=== PATIENT | male | born 1970 | race Caucasian/White ===

== ENCOUNTER 2017-08-08 12:12 | Emergency (ER) | payer BC, OTHER ==
[~2017-08-08] VITALS: Ht 170.2 cm; Wt 67.8 kg
[~2017-08-08 12:12] MED LIST: CREON PO; PRLSR20 PO
[2017-08-08 12:14] VITALS: Ht 170.2 cm; Wt 67.8 kg
[2017-08-08] MEDS ORDERED: TRAZ50TA35 PO (12:43)
[2017-08-08] MEDS ORDERED: FLUO10CA48 PO (12:43)
--- NOTE | 2017-08-08 13:14 | DIAGNOSTIC IMAGING REPORT ---
R FOOT MIN 3 VIEWS ROUTINE HISTORY: 47 years-old Male R foot pain acute right foot pain COMPARISON: Right foot radiographs 02/27/2015 TECHNIQUE: 3 views of the right foot FINDINGS: Unchanged 1.1 cm corticated bone fragment adjacent to the distal fibula suggesting remote fracture fragment. There is an acute nondisplaced intra-articular fracture involving the lateral base of the first distal phalanx with a suspected additional acute nondisplaced intra-articular fracture involving the lateral base of the second distal phalanx and first distal phalangeal tuft. No additional acute fracture or dislocation. Mild soft tissue swelling of the first and second toes. Moderate plantar and small Achilles opacified about the calcaneus. Mild dorsal forefoot soft tissue swelling. IMPRESSION: 1. Acute nondisplaced fractures involve the lateral bases of the first and second distal phalanges with a probable additional nondisplaced fracture involving the first distal phalange tuft. 2. Mild forefoot soft tissue swelling. 3. Degenerative changes as above. The above report was generated using voice recognition software. It may contain grammatical, syntax or spelling errors. Electronically signed by: Saud Agosto M.D. 08/08/2017 1:13 PM Dictated Date/Time: 08/08/2017 1:10 PM
[2017-08-08 13:52] VITALS: BP 155/83; PULSE 68; TEMP 36.5; O2SAT 96
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
== END 2017-08-08 13:53 | disposition home or self-care (01) ==
LOC: C.EDB 12:13 → C.EDD 13:53
DX: S92.424A Nondisplaced fracture of distal phalanx of right great toe, initial encounter for closed fracture (principal); S90.31XA Contusion of right foot, initial encounter; W28.XXXA Contact with powered lawn mower, initial encounter; F17.210 Nicotine dependence, cigarettes, uncomplicated

== ENCOUNTER 2021-11-05 06:07 | Inpatient (IN) ==
[2021-11-05] MEDS ORDERED: MULTI-VITAMIN INFUSION 10 ML, THIAMINE HCL 100 MG, FOLIC ACID 1 MG in SODIUM CHLORIDE 0... IV ONE (06:32)
[2021-11-05] MEDS ORDERED: MoRPHine SULFATE 10 MG/ML CARP/VIAL IV STA (06:32)
--- NOTE | 2021-11-05 06:36 | Emergency Department Note ---
Impression & Plan Pain and swelling of right lower leg, Hypomagnesemia, Generalized weakness, Ataxia, Gout ED Provider Note Name: HARDY FLORES Age: 51 Sex: M Arrives Via: Walk-In Informant: Patient, ED Provider: Andrea Schwartz MD Chief Complaint: Right leg pain Impression: As per impressions above Medical Decision Makin-year-old alcoholic male who arrives for evaluation of acute worsening right leg pain. By exam he has erythema and warmth and pain in the right foot though also a moderate effusion of the right knee. He does not have a typical cellulitic look and given his gout history I would say the foot is more clearly gout related though cannot rule out infection. I did get ESR CRP which were elevated though could be either in a white blood cell count is mildly elevated. The knee is swollen with effusion though no significant warmth and with passive range of motion does not seem to bother him too much unless he go beyond 30 to 45 degrees and palpation does not seem to cause too much discomfort. Again this would lean more towards gout and with an elevated uric acid and no current fever. Patient's labs do reveal low magnesium which is likely due to his alcoholism. He was given a liter of banana bag. His oxygen dropped from low 90s to the 80s with a small dose of morphine and given so was placed on nasal cannula O2. Chest x-ray reveals some emphysema consistent with his smoking history. COVID is negative. I think in the setting of his generalized weakness is ambulatory dysfunction his rapid drop in O2 sats and his hypomagnesemia I think hospitalization is reasonable. In the setting I think monitoring the leg rather than immediately starting antibiotics is reasonable. I did obtain blood cultures and a lactic acid with the initial work-up which the lactic acid is normal. I discussed the case with hospitalist who will evaluate him further Prior Medical Record and Triage/Nursing Notes reviewed by Me Additional history obtained from chart & Differentials:DVT, musculoskeletal, infection, joint effusion, trauma, lymphedema, idiopathic, CHF, as well as other pathologies. Vital Signs: reviewed and remarkable for no significant abnormalities Interventions: Banana bag 1 L IV, IV magnesium 1 g Labs:Reviewed and remarkable for elevated ESR/CRP/uric acid. Mild white blood cell count elevation. Low magnesium Imagin view chest x-ray bilateral findings of emphysema no infiltrate. As per radiologist. As per radiologist ultrasound of the right leg reveals no DVT Consults:Dr. Sid Moore Hospitalist Plan: Disposition:Hospitalization. Condition: Good History of Present Illness:51-year-old gentleman arrives for evaluation of right leg pain. Patient had several days of increasing swelling of the right foot. It is now progressed to swelling of the right knee. He notes some ch ills. It is associated with redness of the foot and some redness going up his leg. He notes pain with any movement of his toes, ankle, knee. He says it hurts too much to even walk though he also notes he is feeling very unsteady. Denies any actual fall or injury. Denies any measured fevers. He has had no recent vomiting, abdominal pain, back pain beyond his chronic neck pain, headache, visual disturbance, urinary/bowel symptoms, other concerning signs or symptoms. Denies any current chest pain, shortness of breath, syncope. No medications for the pain prior to arrival. Patient with a history of alcoholism drinking roughly 6-10 hard lemonade's a night when he quit 5 days ago in prepa ration for neck surgery next week. Patient notes he has been using Valium for this. He has been having some shakes which gets better with the Valium. He is also on naltrexone for trying to quit smoking. He has been taking some uracil a uric acid decrease her. He has a history of some foot pains this assumed he had some mild gout in the past. ROS: See above HPI for pertinent positives & negatives. A total of 10 systems reviewed and were otherwise negative. Past Medical History:Alcoholism, anxiety/depression Past Surgical History:None Family History:non-contributory Social History:See Below Home Medications:fluoxetine, naltrexone, valium, urisol Allergies:Bees Vitals:Blood Pressure: 146/85, Pulse 99, RR 18, T 37.2C, O2 92% on RA Physical Exam: GENERAL: Patient is uncomfortable appearing and in moderate distress. EYES: No scleral icterus, unremarkable pupils. ENT: Mucous membranes dry, no nasal congestion. NECK: No masses appreciated, nomeningismus, trachea is midline. RESPIRATORY: No dyspnea. Clear to auscultation and equal bilaterally. No wheeze, no rhonchi. CARDIOVASCULAR: Tachy.No murmurs, rubs, gallops appreciated. GASTROINTESTINAL: Abdomen soft, non-tender, no peritonitis.Bowel sounds positive.No masses appreciated. BACK: No midline tenderness, no CVA tenderness EXTREMITIES: Warm swollen erythematous right foot with severe tenderness palpation over the foot and pain with range of motion of the toes. Erythema extending up over ankle joint which is moderately swollen as well. He has a moderate effusion of the right knee as well with quite severe pain on range of motion beyond 30 degrees though no significant pain on palpation of knee joint at rest. Distal pulses sensation intact. Otherwise motion all extremities, no cyanosis, no edema. NEUROLOGIC: Mildly tremulous, Alert and oriented, no acute motor or sensory deficits, no focal weakness, cranial nerves grossly intact. SKIN: No rash, no jaundice, no diaphoresis. PSYCH: Appropriate GCS: 15 ED Course: Times/Reassessments: Patient feels much better after some fluids and morphine though his oxygen dropped pretty quickly and thus is requiring nasal cannula O2 Andrea Schwartz MD Past Med/Surg History Medical History Alcohol abuse Hypomagnesemia Leaky heart valve Neck pain, chronic Non-productive cough Pain and swelling of right lower leg Right leg pain Tobacco use Surgical History No pertinent past surgical history Social History Smoking Status: Current every day smoker Tobacco Type: Cigarettes Hx Alcohol Use: Yes Hx Substance Use: No Preferred Language: Greenlandic Current Living Situation: Spouse Feels Safe at Home: Yes Allergies Allergies Allergy/AdvReac Type Severity Reaction Status Date / Time bee venom protein (honey bee) Allergy Severe SHORTNESS Verified 08/15/20 22:17 OF BREATH, SWELLING Home Meds Home Medications Medication Instructions Recorded Confirmed fluoxetine 10 mg capsule 10 mg PO DAILY 08/15/20 11/05/21 trazodone 100 mg tablet 100 mg PO HS 08/15/20 11/05/21 Results & Data (ED) Vital Signs Vital Signs - 24 hr 11/05/21 06:11 11/05/21 07:02 11/05/21 07:15 Temperature 37.2 C Temperature Source Temporal Artery Scan Pulse Rate 99 H Pulse Rate [Left Apical] 87 Pulse Rhythm [Left Apical] Regular Pulse Strength [Left Apical] Normal Respiratory Rate 18 16 Respiratory Effort / Characteristics Non-Labored Spontaneous Non-Labored Spontaneous Respiratory Depth Normal Normal Blood Pressure 146/85 H Blood Pressure [Right Arm] 145/87 H Blood Pressure Mean 105 Blood Pressure Mean [Right Arm] 106 Blood Pressure Position Sitting Pulse Oximetry 92 92 88 L Oxygen Delivery Method Room Air Room Air Room Air Oxygen Flow Rate Sepsis Recent Fever Within 48 Hours No Sepsis New/Unexplained Change in Mental Status No Sepsis Action Taken by Nursing No Action Required 11/05/21 08:02 Temperature Temperature Source Pulse Rate Pulse Rate [Left Apical] Pulse Rhythm [Left Apical] Pulse Strength [Left Apical] Respiratory Rate Respiratory Effort / Characteristics Respiratory Depth Blood Pressure Blood Pressure [Right Arm] Blood Pressure Mean Blood Pressure Mean [Right Arm] Blood Pressure Position Pulse Oximetry 97 Oxygen Delivery Method Nasal Cannula Oxygen Flow Rate 2 Sepsis Recent Fever Within 48 Hours Sepsis New/Unexplained Change in Mental Status Sepsis Action Taken by Nursing Laboratory Data Result diagrams: 11/05/21 06:45 11/05/21 06:45 Lab Results 11/05/21 11/05/21 11/05/21 Range/Units 06:45 06:45 06:45 WBC (4.8-10.8) K/ul RBC (4.63-6.08) M/uL Hgb (14.0-18.0) g/dl Hct (40.1-51.0) % MCV (80.0-100.0) fL MCH (25.0-34.0) pg MCHC (32.0-36.0) g/dL RDW Std Deviation (36.4-46.3) fL RDW Coeff of Nerissa (11.5-14.5) % Plt Count (130-400) K/uL MPV (9.4-12.4) fL Immature Gran % (Auto) % Neut % (Auto) % Lymph % (Auto) % [place] % (Auto) % Eos % (Auto) % Baso % (Auto) % Neut # (Auto) (1.4-6.5) K/uL Lymph # (Auto) (1.2-3.4) K/uL [place] # (Auto) (0.24-0.82) K/uL Eos # (Auto) (0-0.50) K/uL Baso # (Auto) (0-0.2) K/uL Immature Gran # (Auto) (0.00-0.02) K/uL ESR 28 H (0-20) mm/hr Sodium 136 (136-145) mmol/L Potassium 3.7 (3.5-5.1) mmol/L Chloride 105 (98-107) mmol/L Carbon Dioxide 24 (21-32) mmol/L Anion Gap 7 (3-11) BUN 10 (6-23) mg/dl Creatinine 0.79 (0.6-1.4) mg/dl Est Cr Clr Drug Dosing 94.5 ml/min Est GFR ( Amer) 118.8 ml/min Est GFR (Non-Af Amer) 102.5 ml/min BUN/Creatinine Ratio 12.7 (10-20) Glucose 104 H (70-99(Fasting)) mg/dl Lactate 1.0 (0.4-2.0) mmol/L Uric Acid 7.5 H (2.6-7.2) mg/dl Calcium 8.7 (8.5-10.1) mg/dl Magnesium 1.5 L (1.7-2.4) mg/dl Total Bilirubin 1.2 H (0.2-1.0) mg/dl Direct Bilirubin 0.3 H (0-0.2) mg/dl AST 29 (13-39) U/L ALT 29 (7-52) U/L Alkaline Phosphatase 101 (34-104) U/L Total Creatine Kinase 44 (30-223) U/L Troponin I High Sens 9.7 (0-20) pg/ml C-Reactive Protein 4.72 H (0-0.5) mg/dl Total Protein 6.3 (6.0-8.3) gm/dl Albumin 3.6 (3.4-5.0) gm/dl Ethyl Alcohol mg/dL (<10.0) mg/dl SARS-CoV-2, RNA, NAAT (NEGATIVE) 11/05/21 11/05/21 11/05/21 Range/Units 06:45 06:45 08:17 WBC 13.98 H (4.8-10.8) K/ul RBC 4.53 L (4.63-6.08) M/uL Hgb 14.7 (14.0-18.0) g/dl Hct 42.9 (40.1-51.0) % MCV 94.7 (80.0-100.0) fL MCH 32.5 (25.0-34.0) pg MCHC 34.3 (32.0-36.0) g/dL RDW Std Deviation 40.8 (36.4-46.3) fL RDW Coeff of Nerissa 11.9 (11.5-14.5) % Plt Count 154 (130-400) K/uL MPV 11.0 (9.4-12.4) fL Immature Gran % (Auto) 0.3 % Neut % (Auto) 79.4 % Lymph % (Auto) 11.7 % [place] % (Auto) 7.7 % Eos % (Auto) 0.4 % Baso % (Auto) 0.5 % Neut # (Auto) 11.12 H (1.4-6.5) K/uL Lymph # (Auto) 1.63 (1.2-3.4) K/uL [place] # (Auto) 1.07 H (0.24-0.82) K/uL Eos # (Auto) 0.05 (0-0.50) K/uL Baso # (Auto) 0.07 (0-0.2) K/uL Immature Gran # (Auto) 0.04 H (0.00-0.02) K/uL ESR (0-20) mm/hr Sodium (136-145) mmol/L Potassium (3.5-5.1) mmol/L Chloride (98-107) mmol/L Carbon Dioxide (21-32) mmol/L Anion Gap (3-11) BUN (6-23) mg/dl Creatinine (0.6-1.4) mg/dl Est Cr Clr Drug Dosing ml/min Est GFR ( Amer) ml/min Est GFR (Non-Af Amer) ml/min BUN/Creatinine Ratio (10-20) Glucose (70-99(Fasting)) mg/dl Lactate (0.4-2.0) mmol/L Uric Acid (2.6-7.2) mg/dl Calcium (8.5-10.1) mg/dl Magnesium (1.7-2.4) mg/dl Total Bilirubin (0.2-1.0) mg/dl Direct Bilirubin (0-0.2) mg/dl AST (13-39) U/L ALT (7-52) U/L Alkaline Phosphatase (34-104) U/L Total Creatine Kinase (30-223) U/L Troponin I High Sens (0-20) pg/ml C-Reactive Protein (0-0.5) mg/dl Total Protein (6.0-8.3) gm/dl Albumin (3.4-5.0) gm/dl Ethyl Alcohol mg/dL < 10.0 (<10.0) mg/dl SARS-CoV-2, RNA, NAAT NEGATIVE (NEGATIVE) Administered Medications Discontinued Medications Dexamethasone Sodium Phosphate (DexamethasonePf 10 Mg/Ml Vial) 10 mg IV NOW ONE Stop: 11/05/21 08:00 Last Admin: 11/05/21 09:23 Dose: 10 mg Documented By: YUDELKA Multivitamins 10 ml/ Thiamine HCl 100 mg/ Folic Acid 1 mg/Sodium Chloride 1,011.2 mls @ 1,011.2 mls/hr IV .Q1H ONE Stop: 11/05/21 07:31 Last Infusion: 11/05/21 08:26 Dose: 0 mls/hr Documented By: Admin: 11/05/21 07:22 Dose: 1,011.2 mls/hr Documented By: YUDELKA Magnesium Sulfate/Dextrose (Magnesium Sulfate / D5w) 1 gm in 100 mls @ 100 mls/hr IV NOW STA Stop: 11/05/21 08:58 Last Infusion: 11/05/21 10:47 Dose: 0 mls/hr Documented By: Admin: 11/05/21 09:23 Dose: 100 mls/hr Documented By: YUDELKA Morphine Sulfate (Morphine Sulfate 10 Mg/Ml Carp/Vial) 6 mg IV NOW STA Stop: 11/05/21 06:33 Last Admin: 11/05/21 07:01 Dose: 6 mg Documented By: YUDELKA Imaging Data Radiologist's Impression: Venous Doppler Study 11/05/21 06:45 ULTRASOUND RIGHT LOWER EXTREMITY VENOUS CLINICAL HISTORY: Right leg pain and swelling. COMPARISON STUDY: No priors. TECHNIQUE: Real-time, grayscale, and color Doppler sonography of the deep veins of the right lower extremity was performed from the inguinal crease to the calf. Compression and augmentation were utilized. FINDINGS: There is no sonographic evidence of deep venous thrombosis identified in the right lower extremity. The common femoral, superficial femoral, and popliteal veins are patent and normally compressible. The greater saphenous vein and the profunda femoris vein at the junction with the common femoral vein are clear. The visualized calf veins are patent. IMPRESSION: There is no sonographic evidence of deep venous thrombosis identified in the right lower extremity. ACT 112: Negative or not required by law. Electronically signed by: Jorge Zamorano M.D. 11/05/2021 9:16 AM Chest X-Ray 11/05/21 07:58 SINGLE VIEW CHEST CLINICAL HISTORY: Hypoxia FINDINGS: 2 AP, portable, upright chest radiographs are compared to study dated 12/24/2006. The heart is top normal for projection noting atherosclerotic calcification of the thoracic aorta. Emphysema and chronic interstitial thicke jones is similar to previous. There is bibasilar scarring/atelectasis. No airspace consolidation or large pleural effusion is identified. No pneumothorax is seen. The bony thorax is grossly intact. IMPRESSION: Emphysematous change with no active disease in the chest. ACT 112: Negative or not required by law. Electronically signed by: Jorge Zamorano M.D. 11/05/2021 9:37 AM Discharge Plan Visit Data Chief Complaint: Foot Injury/Pain Stated Complaint: RIGHT FOOT PAIN,SWELLING,CAN'T PUT WEIGHT ON IT ED Provider: Andrea Schwartz Discharge Problem: Pain and swelling of right lower leg, Hypomagnesemia, Generalized weakness, Ataxia, Gout Discharge Instructions Interventions: ED Discharge Assessment Last Done: 11/05/21 11:36 : Gout Qualifiers: Gout site: foot Encounter type: initial encounter Chronicity: acute Laterality: right
[2021-11-05 07:12] LABS: Basophils # (auto) 0.07 K/uL (0-0.2); Basophils % (auto) 0.5 %; Eosinophils # (auto) 0.05 K/uL (0-0.50); Eosinophils % (auto) 0.4 %; Hematocrit (blood only) 42.9 % (40.1-51.0); Hemoglobin 14.7 g/dl (14.0-18.0); Immature Granulocytes # (auto) 0.04 K/uL (0.00-0.02); Immature Granulocytes % (auto) 0.3 %; Lymphocytes # (auto) 1.63 K/uL (1.2-3.4); Lymphocytes % (auto) 11.7 %; Mean Corpuscular Hemoglobin 32.5 pg (25.0-34.0); Mean Corpuscular Hgb Conc 34.3 g/dL (32.0-36.0); Mean Corpuscular Volume 94.7 fL (80.0-100.0); Monocytes # (auto) 1.07 K/uL (0.24-0.82); Monocytes % (auto) 7.7 %; Neutrophils # (auto) 11.12 K/uL (1.4-6.5); Neutrophils % (auto) 79.4 %; Platelet Count 154 K/uL (130-400); RDW Coefficient of Variation 11.9 % (11.5-14.5); RDW Standard Deviation 40.8 fL (36.4-46.3); Red Blood Count 4.53 M/uL (4.63-6.08); White Blood Count 13.98 K/ul (4.8-10.8)
[2021-11-05 07:29] LABS: Troponin I High Sensitivity 9.7 pg/ml (0-20)
[2021-11-05 07:40] LABS: Albumin Level 3.6 gm/dl (3.4-5.0); BUN Creatinine Ratio 12.7 (10-20); Bilirubin Direct 0.3 mg/dl (0-0.2); Bilirubin,Total 1.2 mg/dl (0.2-1.0); C Reactive Protein 4.72 mg/dl (0-0.5); Calcium 8.7 mg/dl (8.5-10.1); Creatinine Clr Calc Pharmacy 94.5 ml/min; Est GFR (African American) 118.8 ml/min; Est GFR (Non-African American) 102.5 ml/min; Magnesium 1.5 mg/dl (1.7-2.4); Potassium 3.7 mmol/L (3.5-5.1); Total Protein 6.3 gm/dl (6.0-8.3); Uric Acid 7.5 mg/dl (2.6-7.2)
[2021-11-05] MEDS ORDERED: MAGNESIUM SULFATE / D5W 1 GM/100 ML BAG IV STA (07:59)
[2021-11-05] MEDS ORDERED: dexAMETHasone**PF** 10 MG/ML VIAL IV ONE (07:59)
--- NOTE | 2021-11-05 08:39 | History & Physical Report ---
Date of Service November 05, 2021 Assessment & Plan (1) Pain and swelling of right lower leg: (2) Neck pain, chronic: (3) Tobacco use: (4) Non-productive cough: (5) Alcohol abuse: (6) Hypomagnesemia: Plan Mr. Hobbs is a 51 year old male who presented to the [facility], [place] with right leg pain and right foot and knee swelling and erythema. His uric acid level is elevated at 7.5, has some leukocytosis WBC 13.98, and hypomagnesemia 1.5. Venous Doppler and CXR negative. Cultures pending. DDx considered: Cellulitis, Osteomyelitis, Lymes, lymphangitis, septic joint. Right leg pain and swelling: -Pt with chronic right knee pain and swelling. Received Morphine 6 mg IV in ED. -08/24: Right knee xray with soft tissue swelling and mild OA - no intervention -CRP 4.72, ESR pending. -Right knee CT non contrast ordered -Ortho consult for possible aspiration based on CT results; reached out to consumer insight manager ortho via [place] [employer] -Venous Doppler ultrasound negative. -Blood cultures, MRSA swab, and Lymes ordered and pending -Will start empirical treatment with Cefazolin; consider escalation of abx; f/u with MRSA screen and cultures Cough, Nonproductive: -Cough started a few days ago. Smoker 1.5-2 ppd. Last cigarette 48 hours ago. Started Naltrexone for smoking cessation. -Recently stopped smoking and pt feels related to this. -CXR negative for pulmonary etiology -procal pending Tobacco use: -Typically smokes 1.5-2 ppd -Has started Naltrexone and Bupropriun; continue Alcohol abuse: -Reports drinking 6-10 'twisted teas' per day. No tremors or diaphoresis on exam. -Last drink reported on October 31 as he prepares for his surgery. Was taking a Valium taper; last dose scheduled for 8/ HS. -AWSS scale ordered and will start Gabapentin in place of this. -Hold sedating medications Hypomagnesemia: -Mg+ 1.5 in ED; replaced with 2G. -Will repeat Mg+ level in AM. Hyperuricemia: -Uric Acid 7.5. Reports having gout 'issues' in the past. -Does not take anything chronically. Neck Pain, Chronic: -Pt reports and has a history of chronic neck pain. A/P cervical fusion planned for 11/13/21 at [place]. -Takes Ipuprofen and Tylenol PRN for pain; will continue Tylenol while here High blood pressure: -in ED 145-150 systolic. No known HTN in history. -Continue vitals and if persistently elevated; consider medication intervention. Disposition: PCP: Dr. Simone JEFF Code Status: Full Code Point of Contact: Davie who is his uncle: [phone] VTE prophylaxis: Lovenox SQ Plan to return home after discharge Case discussed, along with all of the above with Dr. Lau History of Present Illness Chief Complaint: foot pain Primary Care Provider: Alma Nichols DO Mr. Hobbs is a 51 year old male who presented to the [facility] [place] with right leg pain and right foot and knee swelling and erythema. His uric acid level is elevated at 7.5, has some leukocytosis WBC 13.98, and hypomagnesemia 1.5. A right knee x-ray was performed in August 2021 with some soft tissue swelling/effusion with some mild osteoarthritis which he reports is more increasingly swollen from then. This gentleman is scheduled for radicular anterior and posterior cervical fusion surgery in [place] next week. In preparation for the surgery; he has eliminated his alcohol use (typical 6-10 twisted teas per day) and has been using Valium at home to offset the alcohol, for which his taper is due to be completed tonight. He also is a smoker of 1.5 ppd and he takes Naltrexone for cessation assistance. A venous doppler US has been ordered and is pending, along with a CXR and cultures. Additional PMH includes anxiety, smoking and alcohol use, GERD, gout (unofficially). Pt denies any recent falls, trauma, open sores, OLVERA, dizziness, CP, palpitations, N/V/D, abdominal pain, bowel changes, urinary changes. This individual will be admitted for further medical management and evaluation. Please see A/P for further details. Allergies Allergy/AdvReac Type Severity Reaction Status Date / Time bee venom protein (honey bee) Allergy Severe SHORTNESS Verified 08/15/20 22:17 OF BREATH, SWELLING Home Medications Medication Instructions Recorded Confirmed Type fluoxetine 10 mg capsule 10 mg PO DAILY 08/15/20 11/05/21 History trazodone 100 mg tablet 100 mg PO HS 08/15/20 11/05/21 History Past Med/Surg History Medical History Alcohol abuse Hypomagnesemia Leaky heart valve Neck pain, chronic Non-productive cough Pain and swelling of right lower leg Right leg pain Tobacco use Surgical History No pertinent past surgical history Social History Smoking Status: Current every day smoker Tobacco Type: Cigarettes Second Hand Exposure: No; Hx Alcohol Use: Yes Alcohol type: beer Hx Substance Use: No Preferred Language: Croatian Communication Ability: Effective Security Trainer Required: No Beliefs That Will Affect Care: None Current Living Situation: Spouse Feels Safe at Home: Yes Assistive Devices: None Review of Systems Review of Systems: Neuro: (-) Falls, trauma, slurred speech HEENT: (-) OLVERA, dizziness, dysphagia, visual or auditory changes CV: (-) CP, palpitations Resp: (+) SOB with exertion GI: (-) appetite changes, N/V/D, bowel changes : (-) urinary changes Skin: (+) redness and swelling on right knee, ankle, and foot. (-) open areas, ulcers Psych: (+) anxiety, depression Physical Exam Physical Exam: Neuro: AAOx4, PERRLA, no aphagia, memory changes, CNII-XII grossly intact; however, a bit groggy HEENT: head normocephalic, dry mucus membranes CV: S1/S2, (-) M/G/R, (+) edema RLE up to his knee, cap refill < 3 seconds Resp: Lungs CTA in all gaytan. On RA GI: Abdomen S/NT/ND, Ax4 bowel sounds, (-) CVA tenderness Musculoskeletal: 5/5 B/L UE strength, 5/5 B/L LE strength. No gait disturbance Skin: (+) erythema (-) rashes , (-) open wounds. Psych: euthymic mood Results & Data Results & Data ([facility]) Vital Signs (Past 12 Hours) Vital Signs Temp Pulse Pulse Resp BP BP Pulse Ox 11/05/21 08:02 97 11/05/21 07:15 88 L 11/05/21 07:02 87 16 145/87 H 92 11/05/21 06:11 37.2 C 99 H 18 146/85 H 92 O2 Del Method O2 Flow Rate 11/05/21 08:02 Nasal Cannula 2 11/05/21 07:15 Room Air 11/05/21 07:02 Room Air 11/05/21 06:11 Room Air Laboratory Results Short CBC 11/05/21 Range/Units 06:45 WBC 13.98 H (4.8-10.8) K/ul Hgb 14.7 (14.0-18.0) g/dl Hct 42.9 (40.1-51.0) % Plt Count 154 (130-400) K/uL BMP 11/05/21 06:45 Sodium 136 Potassium 3.7 Chloride 105 Carbon Dioxide 24 BUN 10 Creatinine 0.79 Glucose 104 H Calcium 8.7 Cardiac Enzymes 11/05/21 Range/Units 06:45 Total Creatine Kinase 44 (30-223) U/L Liver Function 11/05/21 Range/Units 06:45 Total Bilirubin 1.2 H (0.2-1.0) mg/dl Direct Bilirubin 0.3 H (0-0.2) mg/dl AST 29 (13-39) U/L ALT 29 (7-52) U/L Alkaline Phosphatase 101 (34-104) U/L Albumin 3.6 (3.4-5.0) gm/dl Diagnostic Findings Venous Doppler Study 11/05/21 06:45 ULTRASOUND RIGHT LOWER EXTREMITY VENOUS CLINICAL HISTORY: Right leg pain and swelling. COMPARISON STUDY: No priors. TECHNIQUE: Real-time, grayscale, and color Doppler sonography of the deep veins of the right lower extremity was performed from the inguinal crease to the calf. Compression and augmentation were utilized. FINDINGS: There is no sonographic evidence of deep venous thrombosis identified in the right lower extremity. The common femoral, superficial femoral, and popliteal veins are patent and normally compressible. The greater saphenous vein and the profunda femoris vein at the junction with the common femoral vein are clear. The visualized calf veins are patent. IMPRESSION: There is no sonographic evidence of deep venous thrombosis identified in the right lower extremity. ACT 112: Negative or not required by law. Electronically signed by: Jorge Zamorano M.D. 11/05/2021 9:16 AM Chest X-Ray 11/05/21 07:58 SINGLE VIEW CHEST CLINICAL HISTORY: Hypoxia FINDINGS: 2 AP, portable, upright chest radiographs are compared to study dated 12/24/2006. The heart is top normal for projection noting atherosclerotic calcification of the thoracic aorta. Emphysema and chronic interstitial thickening is similar to previous. There is bibasilar scarring/atelectasis. No airspace consolidation or large pleural effusion is identified. No pneumothorax is seen. The bony thorax is grossly intact. IMPRESSION: Emphysematous change with no active disease in the chest. ACT 112: Negative or not required by law. Electronically signed by: Jorge Zamorano M.D. 11/05/2021 9:37 AM ECG Additional Comments: NSR HR 86 GAB: 190 ms QRS 82 ms QTc 456 Code Status & VTE Plan Code Status Pt to remain Full code in the event of respiratory or cardiac arrest VTE Prophylaxis Plan VTE Prophylaxis will be ordered: Yes Supervising Physician Co-Signing Physician Notes 51 yo M w/ PMH of gout (per Pt), current alc abuse trying to quit (last drink 5 days ago) on naltrexone, current tobacco abuse (2 PPD since age 12) trying to quit and on bupropion, scheduled for radicular anterior and posterior cervical fusion Sx in [place] next week (pt not to use nicotine, and no naltrexone within 5 days of Sx date) presented to our ED 8/3 w/ c/o worsening Rt foot pain/redness/swelling and Rt knee pain/swelling since 2-3 days LINING STUFFER. Pt reported having Left knee pain for 2 days w/ pain intensity of 2/10 which resolved 3 days ago LINING STUFFER and then Rt knee pain started w/ pain intensity of 8/10 a/w swelling. Pt denies fever, chills. Pt reports some dry cough after trying to cut down on smoking since last week. Rt foot cellulitis and Rt knee ?gout vs ?septic arthritis: acute onset Rt foot cellulitis and Rt knee swelling/severe pain. No h/o cellulitis in past, reports having gout and takes uric acid lowering OTC drugs occasionally. ESR and CRP elevated/Uric acid 7.5 at presentation. avoid uric acid lowering agents currently, avoid narcotics for pain Mx (pt on naltrexone), pain Mx w/ tylenol and ketorolac. Ortho consult. RLE doppler neg for DVT and Rt knee CT pending. Cefazolin, MRSA screen, continue to follow for antibiotic adjustment. f/u lyme serology. Nonproductive cough/minimal clear sputum started after cutting down on cigarettes, avoid nicotine, c/w bupropion started as OP - 1 tab today and from kandy 1 tab twice a day. Upon Exam GENERAL: Alert and oriented x3. NAD, on RA. HEENT: No pallor, no icterus. Pupils equal, round and reactive to light. Oral mucosa moist. NECK: No JVD, no neck masses. HEART: S1 and S2 heard. Regular rate and rhythm. No murmur, no gallop. RESPIRATORY SYSTEM: Normal AP diameter. No accessory muscle use. No wheezing, no crackles. ABDOMEN: Soft, bowel sounds present, nontender, no distention. CENTRAL NERVOUS SYSTEM: No facial droop. Speech is clear. Obeys simple commands. Moves extremities. EXTREMITIES: No edema, Rt forefoot erythema/swelling tenderness. Rt knee war mth, joint line tenderness out of proportion and tenderness w/ minimal movement. I have seen and examined the patient and have discussed the case with the provider above. Otherwise, I agree with the assessment and plan as stated.
--- NOTE | 2021-11-05 09:17 | Ultrasound Report ---
ULTRASOUND RIGHT LOWER EXTREMITY VENOUS CLINICAL HISTORY: Right leg pain and swelling. COMPARISON STUDY: No priors. TECHNIQUE: Real-time, grayscale, and color Doppler sonography of the deep veins of the right lower ex tremity was performed from the inguinal crease to the calf. Compression and augmentation were utilize d. FINDINGS: There is no sonographic evidence of deep venous thrombosis identified in the right lower ex tremity. The common femoral, superficial femoral, and popliteal veins are patent and normally jimbo sible. The greater saphenous vein and the profunda femoris vein at the junction with the common femor al vein are clear. The visualized calf veins are patent. IMPRESSION: There is no sonographic evidence of deep venous thrombosis identified in the right lower extremity. ACT 112: Negative or not required by law. Electronically signed by: Jorge Zamorano M.D. 11/05/2021 9:16 AM
--- NOTE | 2021-11-05 09:38 | XRay Report ---
SINGLE VIEW CHEST CLINICAL HISTORY: Hypoxia FINDINGS: 2 AP, portable, upright chest radiographs are compared to study dated 12/24/2006. The heart is top normal for projection noting atherosclerotic calcification of the thoracic aorta. Emphysema an d chronic interstitial thickening is similar to previous. There is bibasilar scarring/atelectasis. No airspace consolidation or large pleural effusion is identified. No pneumothorax is seen. The bony th orax is grossly intact. IMPRESSION: Emphysematous change with no active disease in the chest. ACT 112: Negative or not required by law. Electronically signed by: Jorge Zamorano M.D. 11/05/2021 9:37 AM
[2021-11-05 10:19] LABS: Appearance Urine Clear (Clear); Bilirubin Urine Negative (Negative); Blood Urine Negative (Negative); Color Urine Yellow; Glucose Urine UA Negative (Negative); Ketones Urine Negative (Negative); Leukocyte Esterase Urine Negative (Negative); Nitrite Urine Negative (Negative); Protein Urine Negative (Negative); Specific Gravity Urine 1.009 (1.000-1.030); Urobilinogen Urine Negative (Negative); pH Urine 5.5 (4.5-7.5)
--- NOTE | 2021-11-05 11:00 | Electrocardiogram Report ---
Test Reason : Blood Pressure : / mmHG Vent. Rate : 085 BPM Atrial Rate : 085 BPM P-R Int : 140 ms QRS Dur : 082 ms QT Int : 384 ms P-R-T Axes : 039 029 044 degrees QTc Int : 456 ms Normal sinus rhythm When compared with ECG of 05-JUL-2007 04:32, QT has lengthened Confirmed by Ariel Couch ([id number]) on 11/05/2021 11:00:23 AM Referred By: REFERRED SELF Confirmed By:Wil Couch
[2021-11-05] MEDS ORDERED: GABAPENTIN 600 MG TAB PO ONE (12:45)
[2021-11-05] MEDS ORDERED: ALUMINUM/MAGNESIUM SUSP 30 ML UDC PO PRN (12:45)
[2021-11-05] MEDS ORDERED: ACETAMINOPHEN 325 MG TAB PO PRN (12:45)
[2021-11-05] MEDS ORDERED: POLYETHYLENE (MIRALAX) 17 GM PACK PO PRN (12:45)
[2021-11-05] MEDS ORDERED: GABAPENTIN 1200MG ALCOHOL WITHDRAWAL LOAD PO STA (12:45)
[2021-11-05] MEDS ORDERED: MAGNESIUM HYDROXIDE SUSP 30 ML UDC PO PRN (12:45)
[2021-11-05] MEDS ORDERED: LORazepam 1 MG TAB PO PRN (12:59)
--- NOTE | 2021-11-05 13:17 | CT Scan Report ---
CT SCAN OF THE RIGHT KNEE WITHOUT IV CONTRAST CLINICAL HISTORY: Right knee pain and swelling. COMPARISON STUDY: Radiographs of the right knee dated 08/15/2020. TECHNIQUE: CT scan of the right knee is performed from the distal femur to the proximal tibia and fib nell. Images are reviewed in the axial, sagittal, and coronal planes. IV contrast was not administered for this examination. A dose lowering technique was utilized adhering to the principles of ALARA. FINDINGS: The skeletal structures are well mineralized. No fracture is identified. The joint spaces o f the knee are maintained. There is a large joint effusion. No calcified joint body is identified. No bony erosion is seen. No osteochondral lesion is suggested by CT. The regional musculature is normal in appearance. IMPRESSION: Large joint effusion with no acute bony abnormality identified. ACT 112: Negative or not required by law. Dictated: 11/05/2021 11:45 AM Transcribed: 11/05/2021 1:00 PM Amanda [id number] [email or web address] Electronically signed by: Jorge Zamorano M.D. 11/05/2021 1:16 PM
[2021-11-05] MEDS: ENOXAPARIN INJ 40 MG/0.4 ML SYR SQ SCH (13:46)
[2021-11-05] MEDS: ceFAZolin 2000MG 2,000 MG/15 ML SYR IV SCH ×2 (13:46→21:22)
[2021-11-05 14:01] LABS: Lyme Ab IgG w/WB Rflx Negative (Negative)
[2021-11-05 14:07] LABS: Lyme Ab IgM w/WB Rflx Positive (Negative)
[2021-11-05 14:46] LABS: Estimated Average Glucose 111 mg/dl; Hemoglobin A1C 5.5 % (4.5-5.6)
[2021-11-05] MEDS: GABAPENTIN 600 MG TAB PO SCH ×2 (15:40→21:22)
--- NOTE | 2021-11-05 15:41 | Orthopedic Consultation ---
Date of Consultation November 05, 2021 Assessment & Plan (1) Pain and swelling of right lower leg: Moderate knee effusion right knee/painful right foot with mild swelling and erythema. Patient's white count on admission was mildly elevated at 13. ESR 29. CRP 4.72. He was also noted to have a mild elevation in his uric acid to 7.5. His right knee does not examine like an intra-articular infection. He also does not have much in the way of pain as far as gouty arthritis. His effusion is moderate but with the lack of discomfort he is having and with range of motion to 90 degrees, question etiology. Differential diagnosis of the right foot could be cellulitis versus gout/psuedogout. He has been started on IV antibiotics. CT scan of the right knee did show a large effusion but no other injuries or acute findings. Plan for x-ray of the right foot and as well as plain film of the right knee. I will discuss the case with Dr. Kumar. Question need for right knee aspiration. History of Present Illness Reason for Consultation: Right Knee Swelling/Right Foot Pain Attending Physician: Martha Lau MD History of Present Illness Patient is a 51 year old male who presented to the [facility] with right leg pain and right foot and knee swelling and erythema. Pt states he has surgery scheduled for an anterior posterior cervical fusion in approximately a week in [place]. Patient has a history of chronic alcohol abuse. Patient states that he drinks approximately 6-9 beers a night after work. Before having his neck surgery, he was requested to stop his drinking and also to slow down or stop smoking. He was put on a Valium taper for coming off of the alcohol. Patient states he has been doing quite well with it. Approximately 2 days ago, he developed right foot pain. He also noted increased right knee swelling which she has had in the past but it has increased. The foot pain was the worst of the 2. He was having difficulty ambulating and came into the emergency room. He was found to have an erythematous right foot with some swelling and was very tender on palpation. He was also noted to have a right knee effusion. Patient denies any fevers or chills at home but states he was having some night sweats which he attributed to coming off of his alcohol. Denies shortness of breath, chest pain, lightheadedness. He has not had a decrease in his appetite and denies nausea and vomiting. No injuries to the right knee or foot. We have been asked to see him for his right knee swelling and right foot pain. Allergies Allergy/AdvReac Type Severity Reaction Status Date / Time bee venom protein (honey bee) Allergy Severe SHORTNESS Verified 08/15/20 22:17 OF BREATH, SWELLING Home Medications Medication Instructions Recorded Confirmed Type fluoxetine 10 mg capsule 10 mg PO DAILY 08/15/20 11/05/21 History trazodone 100 mg tablet 100 mg PO HS 08/15/20 11/05/21 History Patient History Medical History Alcohol abuse Hypomagnesemia Leaky heart valve Neck pain, chronic Non-productive cough Pain and swelling of right lower leg Right leg pain Tobacco use Surgical History No pertinent past surgical history Social History Smoking Status: Current every day smoker Tobacco Type: Cigarettes Second Hand Exposure: No; Hx Alcohol Use: Yes Alcohol type: beer Hx Substance Use: No Preferred Language: Bhutanese Communication Ability: Effective Nonprofit Manager Required: No Beliefs That Will Affect Care: None Current Living Situation: Spouse Feels Safe at Home: Yes Assistive Devices: None Physical Exam Physical Exam: Patient is a 51-year-old white male who appears his stated age. Alert and oriented x3. No acute distress. Pleasant and cooperative. On examination of his right knee, he has a moderate effusion noted but is not tense. He has very minimal discomfort on palpation over the right knee at this time. He has some slight discomfort just lateral to the patellar tendon. There is no erythema. There is no overt heat on the right knee compared to the left. He is able to flex the knee to approximately 90 degrees before he begins having pain over the lateral aspect of the knee. Collateral ligaments feel stable. No obvious pivot shift. Int/ext rotation of the tibial not producing pain. There is no overt crepitus noted during range of motion. He has full extension. On examination of his right foot, he has adequate range of motion of his right ankle. He has pain with flexion and extension of the ankle which he states is on the dorsum of the foot but not in the ankle itself. He has swelling over the dorsum of the foot at this time and with some mild erythema noted at the base of the toes. He has limited range of motion of his toes at this time secondary to pain. He has no pain on palpation of his toes at this time. Cap refill is less than 2 seconds. Sensation appears to be intact. Most of his pain is on palpation of the dorsum of the foot. No obvious pain on the plantar surface. No abrasions or scratches are noted in the area. Ankle is nontender on palpation over the medial lateral malleolar areas. There is no gross motor or sensory loss at this time. Results & Data ([facility]) Vital Signs (Past 12 Hours) Vital Signs Temp Pulse Pulse Resp BP BP Pulse Ox 11/05/21 10:54 81 16 150/81 H 98 11/05/21 09:25 82 20 150/81 H 97 11/05/21 08:02 97 11/05/21 07:15 88 L 11/05/21 07:02 87 16 145/87 H 92 11/05/21 06:11 37.2 C 99 H 18 146/85 H 92 O2 Del Method O2 Flow Rate 11/05/21 10:54 Nasal Cannula 2 11/05/21 09:25 Nasal Cannula 11/05/21 08:02 Nasal Cannula 2 11/05/21 07:15 Room Air 11/05/21 07:02 Room Air 11/05/21 06:11 Room Air Laboratory Results Laboratory Results WBC 13.98 K/ul (4.8-10.8) H 11/05/21 06:45 RBC 4.53 M/uL (4.63-6.08) L 11/05/21 06:45 Hgb 14.7 g/dl (14.0-18.0) 11/05/21 06:45 Hct 42.9 % (40.1-51.0) 11/05/21 06:45 MCV 94.7 fL (80.0-100.0) 11/05/21 06:45 MCH 32.5 pg (25.0-34.0) 11/05/21 06:45 MCHC 34.3 g/dL (32.0-36.0) 11/05/21 06:45 RDW Std Deviation 40.8 fL (36.4-46.3) 11/05/21 06:45 RDW Coeff of Nerissa 11.9 % (11.5-14.5) 11/05/21 06:45 Plt Count 154 K/uL (130-400) 11/05/21 06:45 MPV 11.0 fL (9.4-12.4) 11/05/21 06:45 Immature Gran % (Auto) 0.3 % 11/05/21 06:45 Neut % (Auto) 79.4 % 11/05/21 06:45 Lymph % (Auto) 11.7 % 11/05/21 06:45 [place] % (Auto) 7.7 % 11/05/21 06:45 Eos % (Auto) 0.4 % 11/05/21 06:45 Baso % (Auto) 0.5 % 11/05/21 06:45 Neut # (Auto) 11.12 K/uL (1.4-6.5) H 11/05/21 06:45 Lymph # (Auto) 1.63 K/uL (1.2-3.4) 11/05/21 06:45 [place] # (Auto) 1.07 K/uL (0.24-0.82) H 11/05/21 06:45 Eos # (Auto) 0.05 K/uL (0-0.50) 11/05/21 06:45 Baso # (Auto) 0.07 K/uL (0-0.2) 11/05/21 06:45 Immature Gran # (Auto) 0.04 K/uL (0.00-0.02) H 11/05/21 06:45 ESR 29 mm/hr (0-20) H 11/05/21 13:05 Sodium 136 mmol/L (136-145) 11/05/21 06:45 Potassium 3.7 mmol/L (3.5-5.1) 11/05/21 06:45 Chloride 105 mmol/L (98-107) 11/05/21 06:45 Carbon Dioxide 24 mmol/L (21-32) 11/05/21 06:45 Anion Gap 7 (3-11) 11/05/21 06:45 BUN 10 mg/dl (6-23) 11/05/21 06:45 Creatinine 0.79 mg/dl (0.6-1.4) 11/05/21 06:45 Est Cr Clr Drug Dosing 94.5 ml/min 11/05/21 06:45 Est GFR ( Amer) 118.8 ml/min 11/05/21 06:45 Est GFR (Non-Af Amer) 102.5 ml/min 11/05/21 06:45 BUN/Creatinine Ratio 12.7 (10-20) 11/05/21 06:45 Glucose 104 mg/dl (70-99(Fasting)) H 11/05/21 06:45 Estimat Average Glucose 111 mg/dl 11/05/21 13:05 Hemoglobin A1c 5.5 % (4.5-5.6) 11/05/21 13:05 Lactate 1.0 mmol/L (0.4-2.0) 11/05/21 06:45 Uric Acid 7.5 mg/dl (2.6-7.2) H 11/05/21 06:45 Calcium 8.7 mg/dl (8.5-10.1) 11/05/21 06:45 Magnesium 1.5 mg/dl (1.7-2.4) L 11/05/21 06:45 Total Bilirubin 1.2 mg/dl (0.2-1.0) H 11/05/21 06:45 Direct Bilirubin 0.3 mg/dl (0-0.2) H 11/05/21 06:45 AST 29 U/L (13-39) 11/05/21 06:45 ALT 29 U/L (7-52) 11/05/21 06:45 Alkaline Phosphatase 101 U/L (34-104) 11/05/21 06:45 Total Creatine Kinase 44 U/L (30-223) 11/05/21 06:45 Troponin I High Sens 9.7 pg/ml (0-20) 11/05/21 06:45 C-Reactive Protein 4.72 mg/dl (0-0.5) H 11/05/21 06:45 Total Protein 6.3 gm/dl (6.0-8.3) 11/05/21 06:45 Albumin 3.6 gm/dl (3.4-5.0) 11/05/21 06:45 Procalcitonin 0.05 ng/ml (0-0.5) 11/05/21 13:05 TSH 0.384 uIu/ml (0.300-4.500) 11/05/21 13:05 Urine Color Yellow 11/05/21 09:47 Urine Appearance Clear (Clear) 11/05/21 09:47 Urine pH 5.5 (4.5-7.5) 11/05/21 09:47 Ur Specific [place] 1.009 (1.000-1.030) 11/05/21 09:47 Urine Protein Negative (Negative) 11/05/21 09:47 Urine Glucose (UA) Negative (Negative) 11/05/21 09:47 Urine Ketones Negative (Negative) 11/05/21 09:47 Urine Blood Negative (Negative) 11/05/21 09:47 Urine Nitrite Negative (Negative) 11/05/21 09:47 Urine Bilirubin Negative (Negative) 11/05/21 09:47 Urine Urobilinogen Negative (Negative) 11/05/21 09:47 Ur Leukocyte Esterase Negative (Negative) 11/05/21 09:47 Ethyl Alcohol mg/dL < 10.0 mg/dl (<10.0) 11/05/21 06:45 Lyme Disease IgG Ab Negative (Negative) 11/05/21 12:13 Lyme Disease IgM Ab Positive (Negative) A 11/05/21 12:13 SARS-CoV-2, RNA, NAAT NEGATIVE (NEGATIVE) 11/05/21 08:17 Impressions Venous Doppler Study 11/05/21 06:45 ULTRASOUND RIGHT LOWER EXTREMITY VENOUS CLINICAL HISTORY: Right leg pain and swelling. COMPARISON STUDY: No priors. TECHNIQUE: Real-time, grayscale, and color Doppler sonography of the deep veins of the right lower extremity was performed from the inguinal crease to the calf. Compression and augmentation were utilized. FINDINGS: There is no sonographic evidence of deep venous thrombosis identified in the right lower extremity. The common femoral, superficial femoral, and popliteal veins are patent and normally compressible. The greater saphenous vein and the profunda femoris vein at the junction with the common femoral vein are clear. The visualized calf veins are patent. IMPRESSION: There is no sonographic evidence of deep venous thrombosis identified in the right lower extremity. ACT 112: Negative or not required by law. Electronically signed by: Jorge Zamorano M.D. 11/05/2021 9:[address] 11/05/21 10:02 CT SCAN OF THE RIGHT KNEE WITHOUT IV CONTRAST CLINICAL HISTORY: Right knee pain and swelling. COMPARISON STUDY: Radiographs of the right knee dated 08/15/2020. TECHNIQUE: CT scan of the right knee is performed from the distal femur to the proximal tibia and fibula. Images are reviewed in the axial, sagittal, and coronal planes. IV contrast was not administered for this examination. A dose lowering technique was utilized adhering to the principles of ALARA. FINDINGS: The skeletal structures are well mineralized. No fracture is identified. The joint spaces of the knee are maintained. There is a large joint effusion. No calcified joint body is identified. No bony erosion is seen. No osteochondral lesion is suggested by CT. The regional musculature is normal in appearance. IMPRESSION: Large joint effusion with no acute bony abnormality identified. ACT 112: Negative or not required by law. Dictated: 11/05/2021 11:45 AM Transcribed: 11/05/2021 1:00 PM Amanda [id number] [email or web address] Electronically signed by: Jorge Zamorano M.D. 11/05/2021 1:16 PM
[2021-11-05] MEDS: buPROPion XL 150 MG TABCR PO SCH (15:45)
[2021-11-05] MEDS: FOLIC ACID 1 MG TAB PO SCH (15:45)
[2021-11-05] MEDS: THIAMINE HCL 100 MG TAB PO SCH (15:46)
[2021-11-05] MEDS: NALTREXONE HCL 50 MG TAB PO SCH (15:46)
[2021-11-05] MEDS ORDERED: KETOROLAC TROMETHAMINE 15 MG/ML VIAL IV PRN (16:02)
--- NOTE | 2021-11-05 17:10 | XRay Report ---
XR knee RT 3V CLINICAL HISTORY: Right knee swelling/pain COMPARISON STUDY: Right knee radiograph 08/15/2020. Right knee CT 11/05/2021. FINDINGS: No fracture or dislocation within the right knee. Large knee effusion is again noted. Mild patellofemoral osteoarthritis remains unchanged. No erosive changes identified. IMPRESSION: 1. No fracture or dislocation within the right knee. 2. Large knee effusion, unchanged. ACT 112: Negative or not required by law. Electronically signed by: Robert Francisco M.D. 11/05/2021 5:09 PM
--- NOTE | 2021-11-05 17:35 | XRay Report ---
XR foot RT min 3V routine CLINICAL HISTORY: right foot pain COMPARISON STUDY: Right foot 08/08/2017. FINDINGS: No acute fracture or dislocation within the right foot. There is a small plantar heel spur. Soft tissues are unremarkable. The Lisfranc joint is intact. Cartilage spaces are maintained for age . There is an old small avulsion fracture at the distal fibula, unchanged. There is a small soft tiss ue and bony bunion at the medial head of the first metatarsal. IMPRESSION: 1. No acute fracture or dislocation within the right foot. 2. Small soft tissue and bony bunion. ACT 112: Negative or not required by law. Electronically signed by: Robert Francisco M.D. 11/05/2021 5:34 PM
[2021-11-05] MEDS ORDERED: ETHYL CHLORIDE AER SPR 100 ML CAN EXT ONE (18:35)
[2021-11-05 21:03] LABS: Appearance Synovial Fluid Cloudy; Color Synovial Fluid Yellow; RBC Synovial Fluid (A) 3000 /uL; Source Synovial Fluid KNEE; WBC Synovial Fluid (A) 35970 /ul (0-200)
[2021-11-05] MEDS: traZODone HCL 100 MG TAB PO SCH (21:22)
[2021-11-05] MEDS: DOXYCYCLINE HYCLATE 100 MG in DEXTROSE 5% 100 ML IV SCH (21:54)
[2021-11-06] MEDS: ENOXAPARIN INJ 40 MG/0.4 ML SYR SQ SCH ×2 (01:24→14:04)
[2021-11-06] MEDS: ceFAZolin 2000MG 2,000 MG/15 ML SYR IV SCH ×2 (05:46→14:04)
[2021-11-06] MEDS: GABAPENTIN 600 MG TAB PO SCH ×3 (05:46→22:10)
[2021-11-06 07:02] LABS: Basophils # (auto) 0.01 K/uL (0-0.2); Basophils % (auto) 0.1 %; Hemoglobin 14.3 g/dl (14.0-18.0); Immature Granulocytes # (auto) 0.06 K/uL (0.00-0.02); Immature Granulocytes % (auto) 0.7 %; Lymphocytes # (auto) 1.25 K/uL (1.2-3.4); Lymphocytes % (auto) 13.9 %; Mean Corpuscular Hemoglobin 32.8 pg (25.0-34.0); Mean Corpuscular Volume 96.3 fL (80.0-100.0); Monocytes # (auto) 0.71 K/uL (0.24-0.82); Monocytes % (auto) 7.9 %; Neutrophils # (auto) 6.98 K/uL (1.4-6.5); Neutrophils % (auto) 77.4 %; Platelet Count 160 K/uL (130-400); RDW Coefficient of Variation 11.7 % (11.5-14.5); RDW Standard Deviation 41.3 fL (36.4-46.3); Red Blood Count 4.36 M/uL (4.63-6.08); White Blood Count 9.01 K/ul (4.8-10.8)
[2021-11-06 07:37] LABS: BUN Creatinine Ratio 17.4 (10-20); Calcium 8.7 mg/dl (8.5-10.1); Creatinine Clr Calc Pharmacy 108.2 ml/min; Est GFR (African American) 125.6 ml/min; Est GFR (Non-African American) 108.4 ml/min; Magnesium 1.9 mg/dl (1.7-2.4); Potassium 3.8 mmol/L (3.5-5.1)
[2021-11-06] MEDS: NALTREXONE HCL 50 MG TAB PO SCH (08:45)
[2021-11-06] MEDS: DOXYCYCLINE HYCLATE 100 MG in DEXTROSE 5% 100 ML IV SCH (08:48)
[2021-11-06] MEDS: buPROPion XL 150 MG TABCR PO SCH (09:22)
[2021-11-06] MEDS: FOLIC ACID 1 MG TAB PO SCH (09:22)
[2021-11-06] MEDS: THIAMINE HCL 100 MG TAB PO SCH (09:22)
--- NOTE | 2021-11-06 10:05 | Hospitalist Progress Note ---
Date of Service November 06, 2021 Assessment & Plan (1) Pain and swelling of right lower leg: (2) Neck pain, chronic: (3) Tobacco use: (4) Non-productive cough: (5) Alcohol abuse: (6) Hypomagnesemia: Plan 51 year old male who presented to the [facility] with right leg pain and right foot and knee swelling and erythema. His uric acid level is elevated at 7.5, has some leukocytosis WBC 13.98, and hypomagnesemia 1.5. Venous Doppler and CXR negative. Right leg and knee pain and swelling: Pt with chronic right knee pain 08/24: Right knee xray with soft tissue swelling and mild OA CRP 4.72, ESR [address] non contrast showed large joint effusion with no acute bony abnormality Venous Doppler ultrasound negative. Ortho eval appreciated. Had arthrocentesis by ortho. Synovial fluid analysis showed 35K, monosodium urate crystals. Gram stain negative Right knee gout flare Start naproxen 500mg bid, allopurinol 100mg daily Stop Cefazolin Other workup was positive for Lyme IgM Ab. Currently on doxycycline Cough, Nonproductive: Report chronic intermittent cough which he ascribed to his smoking. Smokes 1.5-2 ppd. Last cigarette 3 hours ago. Started Naltrexone for smoking cessation. Recently stopped smoking and pt feels related to this. CXR negative for pulmonary etiology Tobacco use: Typically smokes 1.5-2 ppd Has started Naltrexone and Bupropriun; continue Alcohol abuse: Reports drinking 6-10 'twisted teas' per day. No tremors or diaphoresis on exam. Last drink reported on October 31 as he prepares for his surgery. Was taking a Valium taper; last dose scheduled for 11/05 HS. Continue gabapentin taper ordered on admission. Stop ativan Hypomagnesemia: Mg+ 1.5 in ED; replaced with 2G. Mag is 1.9 today Hyperuricemia: Uric Acid 7.5. Reports having gout 'issues' in the past. Started on allopurinol as above Neck Pain, Chronic: Pt reports and has a history of chronic neck pain. A/P cervical fusion planned for 11/13/21 at [facility]. Takes Ipuprofen and Tylenol PRN for pain Tylenol prn. Needs to stop ibuprofen prn on dc while on naproxen High blood pressure: -in ED 145-150 systolic. No known HTN in history. May be related to pain BP is normal today PCP: Dr. Simone JEFF Code Status: Full Code Point of Contact: Davie who is his uncle: [phone] VTE prophylaxis: Lovenox SQ Plan to dc tomorrow Admission and Anticipated Discharge Date Admission Date: November 05, 2021 Subjective Patient seen and examined Reports right foot and knee pain is significantly improved since after knee tap yesterday. Denied any fevers, chills, nausea, vomiting Denied any abd pain, diarrhea, constipation Reports chronic cough (currently quit smoking) Denied any chest pain, shortness of breath Denied any dysuria, freq, urgency Physical Exam Constitutional: + well hydrated; no acute distress Eyes: PERRL, conjunctivae normal, anicteric sclerae ENMT: external ear and nose normal, oropharynx normal Respiratory: normal respiratory effort, lungs clear to auscultation Cardiovascular: Rate/Rhythm: regular rate and regular rhythm S1 S2 Gastrointestinal (Abdomen): normal bowel sounds, soft, nontender, no hepatosplenomegaly Musculoskeletal: Right knee bandaged Normal ROM across right knee Neurologic: AOX3, no focal deficits Results & Data Results & Data ([facility]) Vital Signs (Past 12 Hours) Vital Signs Temp Pulse Pulse Resp BP BP Pulse Ox 11/06/21 08:02 36.5 C 63 16 111/66 94 11/06/21 06:58 71 11/06/21 04:03 36.5 C 71 18 103/63 94 11/06/21 01:20 11/05/21 22:49 36.5 C 56 L 18 116/65 94 O2 Del Method O2 Flow Rate 11/06/21 08:02 Room Air 11/06/21 06:58 11/06/21 04:03 Nasal Cannula 2 11/06/21 01:20 Room Air 11/05/21 22:49 Nasal Cannula 2 Laboratory Results Abnormal lab results 11/05/21 11/05/21 11/05/21 Range/Units 12:13 13:05 19:45 RBC (4.63-6.08) M/uL Neut # (Auto) (1.4-6.5) K/uL Immature Gran # (Auto) (0.00-0.02) K/uL ESR 29 H (0-20) mm/hr Chloride (98-107) mmol/L Glucose (70-99(Fasting)) mg/dl Synovial WBC 86416 H (0-200) /ul Lyme Disease IgM Ab Positive A (Negative) 11/06/21 11/06/21 Range/Units 06:42 06:42 RBC 4.36 L (4.63-6.08) M/uL Neut # (Auto) 6.98 H (1.4-6.5) K/uL Immature Gran # (Auto) 0.06 H (0.00-0.02) K/uL ESR (0-20) mm/hr Chloride 108 H (98-107) mmol/L Glucose 120 H (70-99(Fasting)) mg/dl Synovial WBC (0-200) /ul Lyme Disease IgM Ab (Negative)
[2021-11-06] MEDS: allopurinoL 100 MG TAB PO SCH (12:37)
[2021-11-06] MEDS: NAPROXEN 250 MG TAB PO SCH ×2 (12:37→22:10)
--- NOTE | 2021-11-06 17:26 | Post Operative Brief Note ---
Immediate Post Op Note v1 Date of Surgery November 06, 2021 Pre & Post Diagnosis Right second toe osteomyelitis I identified the patient and participated in the time-out.: Yes Procedure Right second toe amputation at the metatarsal phalangeal joint Surgeon Braden Castro MD Activity Leader Tom Molina PA-C Estimated Blood Loss 1 Findings Consistent with Post-Op Diagnosis
[2021-11-06] MEDS: DOXYCYCLINE HYCLATE 100 MG CAP PO SCH (22:10)
[2021-11-06] MEDS: traZODone HCL 100 MG TAB PO SCH (22:11)
[2021-11-07] MEDS ORDERED: ENOXAPARIN INJ 40 MG/0.4 ML SYR SQ SCH (06:00)
[2021-11-07 07:47] LABS: Hematocrit (blood only) 42.1 % (40.1-51.0); Hemoglobin 14.1 g/dl (14.0-18.0); Mean Corpuscular Hemoglobin 32.6 pg (25.0-34.0); Mean Corpuscular Hgb Conc 33.5 g/dL (32.0-36.0); Mean Corpuscular Volume 97.5 fL (80.0-100.0); Mean Platelet Volume 11.4 fL (9.4-12.4); Platelet Count 190 K/uL (130-400); RDW Coefficient of Variation 11.8 % (11.5-14.5); RDW Standard Deviation 42.8 fL (36.4-46.3); Red Blood Count 4.32 M/uL (4.63-6.08); White Blood Count 9.19 K/ul (4.8-10.8)
[2021-11-07 08:22] LABS: BUN Creatinine Ratio 20.3 (10-20); Calcium 8.7 mg/dl (8.5-10.1); Creatinine Clr Calc Pharmacy 94.8 ml/min; Est GFR (African American) 118.8 ml/min; Est GFR (Non-African American) 102.5 ml/min; Potassium 3.7 mmol/L (3.5-5.1)
[2021-11-07] MEDS: THIAMINE HCL 100 MG TAB PO SCH (09:21)
[2021-11-07] MEDS: NALTREXONE HCL 50 MG TAB PO SCH (09:21)
[2021-11-07] MEDS: FOLIC ACID 1 MG TAB PO SCH (09:21)
[2021-11-07] MEDS: DOXYCYCLINE HYCLATE 100 MG CAP PO SCH (09:21)
[2021-11-07] MEDS: allopurinoL 100 MG TAB PO SCH (09:21)
[2021-11-07] MEDS: buPROPion XL 150 MG TABCR PO SCH (09:21)
[2021-11-07] MEDS: NAPROXEN 250 MG TAB PO SCH (09:23)
[2021-11-07] MEDS ORDERED: GABAPENTIN 600 MG TAB PO SCH (10:15)
--- NOTE | 2021-11-07 10:40 | Discharge Summary ---
Date of Service November 07, 2021 Admission HPI Per Admitting Provider Mr. Hobbs is a 51 year old male who presented to the [facility] with right leg pain and right foot and knee swelling and erythema. His uric acid level is elevated at 7.5, has some leukocytosis WBC 13.98, and hypomagnesemia 1.5. A right knee x-ray was performed in August 2021 with some soft tissue swelling/effusion with some mild osteoarthritis which he reports is more increasingly swollen from then. This gentleman is scheduled for radicular anterior and posterior cervical fusion surgery in [place] next week. In preparation for the surgery; he has eliminated his alcohol use (typical 6-10 twisted teas per day) and has been using Valium at home to offset the alcohol, for which his taper is due to be completed tonight. He also is a smoker of 1.5 ppd and he takes Naltrexone for cessation assistance. A venous doppler US has been ordered and is pending, along with a CXR and cultures. Additional PMH includes anxiety, smoking and alcohol use, GERD, gout (unofficially). Pt denies any recent falls, trauma, open sores, OLVERA, dizziness, CP, palpitations, N/V/D, abdominal pain, bowel changes, urinary changes. This individual will be admitted for further medical management and evaluation. Please see A/P for further details. Admission Exam Per Admitting Provider Neuro: AAOx4, PERRLA, no aphagia, memory changes, CNII-XII grossly intact; however, a bit groggy HEENT: head normocephalic, dry mucus membranes CV: S1/S2, (-) M/G/R, (+) edema RLE up to his knee, cap refill < 3 seconds Resp: Lungs CTA in all gaytan. On RA GI: Abdomen S/NT/ND, Ax4 bowel sounds, (-) CVA tenderness Musculoskeletal: 5/5 B/L UE strength, 5/5 B/L LE strength. No gait disturbance Skin: (+) erythema (-) rashes , (-) open wounds. Psych: euthymic mood Principal Diagnosis Right knee gout flare Lyme disease Discharge Exam Constitutional + well hydrated; no acute distress Eyes PERRL, conjunctivae normal, anicteric sclerae ENMT external ear and nose normal, oropharynx normal Respiratory normal respiratory effort, lungs clear to auscultation Cardiovascular Rate/Rhythm: regular rate and regular rhythm S1 S2 Gastrointestinal (Abdomen) normal bowel sounds, soft, nontender, no hepatosplenomegaly Musculoskeletal No right knee swelling or tenderness (resolved) Neurologic AOX3, no focal deficits Discharge Data Allergies Allergy/AdvReac Type Severity Reaction Status Date / Time bee venom protein (honey bee) Allergy Severe SHORTNESS Verified 08/15/20 22:17 OF BREATH, SWELLING Consultations 11/05/21 08:30 ED Decision to Admit Stat 11/05/21 12:45 Consult Orthopedic Surgery Routine Ordered Studies 11/05/21 06:45 US venous doppler LE RT Stat There is no sonographic evidence of deep venous thrombosis identified in the right lower extremity. The common femoral, superficial femoral, and popliteal veins are patent and normally compressible. The greater saphenous vein and the profunda femoris vein at the junction with the common femoral vein are clear. The visualized calf veins are patent. IMPRESSION: There is no sonographic evidence of deep venous thrombosis identified in the right lower extremity 11/05/21 10:02 CT knee RT wo con Routine The skeletal structures are well mineralized. No fracture is identified. The joint spaces of the knee are maintained. There is a large joint effusion. No calcified joint body is identified. No bony erosion is seen. No osteochondral lesion is suggested by CT. The regional musculature is normal in appearance. IMPRESSION: Large joint effusion with no acute bony abnormality identified. Hospital Course (1) Pain and swelling of right lower leg: (2) Neck pain, chronic: (3) Tobacco use: (4) Non-productive cough: (5) Alcohol abuse: (6) Hypomagnesemia: Plan 51 year old male who presented to the [facility] with right leg pain and right foot and knee swelling and erythema. His uric acid level is elevated at 7.5, has some leukocytosis WBC 13.98, and hypomagnesemia 1.5. Venous Doppler and CXR negative. Right leg and knee pain and swelling: Pt with chronic right knee pain 08/24: Right knee xray with soft tissue swelling and mild OA CRP 4.72, ESR [address] non contrast showed large joint effusion with no acute bony abnormality Venous Doppler ultrasound negative. Ortho evaluated and performed arthrocentesis. Synovial fluid analysis showed 35K, monosodium urate crystals. Gram stain negative Right knee gout flare Patient was started on naproxen 500mg bid Right knee pain significantly improved Other workup was positive for Lyme IgM Ab. Patient was discharged on doxycycline to complete treatment for lyme disease Cough, Nonproductive: Tobacco use: Alcohol abuse: Report chronic intermittent cough which he ascribed to his smoking. Smokes 1.5-2 ppd. Last cigarette 4 days ago. Reports he was recently started on ?welbutrin/naltrexone for smoking/alcohol cessation. Recently stopped smoking and pt feels related to this. CXR negative for acute pulmonary pathology Reports drinking 6-10 'twisted teas' per day. No signs of withdrawal inpatient Hypomagnesemia: Mg+ 1.5 in ED; replaced with 2G. Mag improved to 1.9 Hyperuricemia: Uric Acid 7.5. Reports having gout 'issues' in the past. PCP need to reassess in the future after flare is resolved to determine if urate lowering therapy is indicated Neck Pain, Chronic: Pt reports and has a history of chronic neck pain. A/P cervical fusion planned for 11/13/21 at [place]. Takes Ipuprofen and Tylenol PRN for pain Advised not to take ibuprofen prn while on naproxen High blood pressure: -in ED 145-150 systolic. No known HTN in history. This is likely related to pain as BP has been normal since pain is controlled Total Time Total Time Spent Total Time Spent (In Minutes): 45 Total Time Includes: Examination of the Patient, Discharge Planning, Medication Reconciliation and Other (Updated on the phone) Discharge Plan Discharge Items Patient Disposition: Home - Self-Care Reason For Visit: FOOT PAIN Discharge Diagnosis: Gout flare Activity: Resume your previous activity Non-emergency contact: Primary Care Provider Call non-emergency contact if: you have any medication questions and your symptoms worsen Follow-up/Referrals: Alma Nichols DO [Primary Care Provider] - (Date & Time 11/14/2021 11:20 AM Provider Alma Nichols DO Department [facility] ) Diet: Regular Addtl Attending Provider Instructions: Mr Hobbs You came to the hospital complaining of right foot and knee pain. You had right knee tap and evaluation revealed you had gout flare. You were started on treatment and your symptoms improved. You are being discharged on naproxen to take for next few days. Test also showed you had lyme infection. You are being discharged on doxycycline to complete treatment. Please take these meds with meals. Please ensure follow up with your Primary Doctor It was a pleasure taking care of you. Pending Studies at Discharge: No Stand-Alone Forms: My [facility], Smoking Cessation Medications and DC Order Prescriptions: New doxycycline hyclate 100 mg Capsule 100 mg PO BID 8 Days Qty: 16 0RF naproxen 250 mg Tablet 500 mg PO BID 3 Days Qty: 12 0RF Continued trazodone 100 mg tablet 100 mg PO HS fluoxetine 10 mg capsule 10 mg PO DAILY Discharge Orders: Discharge Order (Routine); Ordered 11/07/21 Ordered By: Ashley Mendoza Admission Data Admit Date/Time: 11/05/21 09:20 Attending Provider: Ashley Mendoza I. Admit Provider: Martha Lau Primary Care Provider: Alma Nichols Other Providers: Martha Lau ; Remi Xie Other Interventions: Discharge Summary Assessment (RN) Last Done: 11/07/21 10:45
[2021-11-07 19:36] LABS: 18KDIGG Band NON-REACTIVE; 23KDIGG Band NON-REACTIVE; 23KDIGM Band NON-REACTIVE; 28KDIGG Band NON-REACTIVE; 30KDIGG Band NON-REACTIVE; 39KDIGG Band NON-REACTIVE; 39KDIGM Band NON-REACTIVE; 41KDIGG Band REACTIVE; 41KDIGM Band NON-REACTIVE; 45KDIGG Band NON-REACTIVE; 58KDIGG Band NON-REACTIVE; 66KDIGG Band NON-REACTIVE; 93KDIGG Band NON-REACTIVE; Lyme Antibodies, WB IgG NEGATIVE (NEGATIVE); Lyme Antibodies, WB IgM NEGATIVE (NEGATIVE)
[2021-11-08] MEDS ORDERED: GABAPENTIN 600 MG TAB PO SCH (22:15)
== END 2021-11-07 11:32 | disposition home or self-care (01) | DRG 554 ==
LOC: ED 06:07 → SUATTDRO 09:20 → EDINP 09:20 → 2N 11:36
DX: F17.210 Nicotine dependence, cigarettes, uncomplicated; M11.861 Other specified crystal arthropathies, right knee; L03.115 Cellulitis of right lower limb; F10.20 Alcohol dependence, uncomplicated; M25.461 Effusion, right knee; M54.2 Cervicalgia; R27.0 Ataxia, unspecified; M17.11 Unilateral primary osteoarthritis, right knee; E83.42 Hypomagnesemia; A69.20 Lyme disease, unspecified; J43.9 Emphysema, unspecified

== ENCOUNTER 2024-03-19 11:40 | Inpatient (IN) ==
--- NOTE | 2024-03-19 12:05 | Emergency Department Note ---
Impression & Plan Hypoxia, Dog bite, Joint pain, Leukocytosis, History of aortic valve replacement ED Provider Note NAME: HARDY FLORES AGE: 54 SEX: M : 1970 ARRIVES VIA: Walk-In INFORMANT: [Patient][family] ED PROVIDER(S): [Jorge Baird MD] CHIEF COMPLAINT: Swelling, joint pain HISTORY OF PRESENT ILLNESS: The patient is a 54-year-old male who had aortic valve replacement surgery on February 08, just over a month ago. The patient is on warfarin. The valve is mechanical. Patient states that 2 days ago, he was attacked by his dog and suffered an ear laceration. This was repaired by facial surgery. He is now on Augmentin as antibiotic prophylaxis. The patient states that in the last 2 days, since the dog attack, he has noticed pain across the upper chest bilaterally. He has noticed joint pain in the feet and knees and he has had some swelling of the knees. The pain is increased to the point where he cannot walk. He states he feels maybe slightly short of breath. There has been no fever, no cough or congestion. No known tick bite. PMHx/PSHx/Social Hx: See Below PHYSICAL EXAM: GENERAL: Patient is in no acute distress. HEENT: There is a bandage about the head in right ear. Mucous membranes moist NECK: No stridor, no adenopathy, no meningismus, trachea is midline. LUNGS: Coarse of breath sounds bilaterally, no wheezing, no respiratory distress. Breath sounds equal. HEART: Subtle systolic murmur. Mildly tachycardic, regular rhythm. ABDOMEN: Soft, nontender, no peritonitis. EXTREMITIES: No cyanosis. There is no erythema to the lower extremities. No joint effusions to the knees appreciated. No edema to the lower extremities NEUROLOGIC: Oriented x 3, no acute motor or sensory deficits, no focal weakness. SKIN: No jaundice, no diaphoresis. DIFFERENTIAL DIAGNOSIS: NH, musculoskeletal pain, CHF, tickborne disease, anemia, electrolyte imbalance, medication reaction, among others. EMERGENCY DEPARTMENT PROCEDURES: MEDICAL DECISION MAKING: There is a mild leukocytosis, this could be consistent with infection or the stress of his current presentation. There is a normal hemoglobin and platelet count. Sed rate was somewhat elevated at 34. The sed rate elevation could be consistent with inflammation/infection. INR was 3.2, elevated and consistent with his warfarin use. There was no renal failure. No significant electrolyte abnormality. No concerning liver enzyme elevation. The patient appeared to be in a euthyroid state. ECG shows a sinus tachycardia, no obvious ischemia. Cardiac enzyme testing x 1 was not consistent with acute cardiac injury. BNP was slightly elevated consistent with some mild fluid overload. Chest x-ray showed some findings of COPD/emphysema, no pneumonia or CHF. Urinalysis did not show findings of infection. Anaplasmosis and Babesia smears were negative. Lyme disease testing was negative. On exam, the patient had some mild tachycardia. He was not in distress. The patient received a DuoNeb, this seemed to help his breathing. He was placed on nasal cannula O2 supplementation when his O2 saturation demonstrated some mild hypoxia at around 88%. The patient presents with shortness of breath, joint pain, hypoxia. He just underwent aortic valve replacement surgery over 1 month ago. He was just in our ER for a dog bite to the right ear and is now on Augmentin. Given the circumstances, given his presentation and hypoxia, I do think a hospital stay is warranted. I did speak with the patient and case management. The on-call hospitalist was consulted. Prior/Outside records/notes reviewed: ED visit note from 03/17/2024 describing his presentation, the need for a facial surgical consult and the plan outpatient ECG per my interpretation: Indication was chest pain. The ECG shows a sinus tachycardia with a PVC. The rate is 101. There is some baseline artifact seen. There is some nonspecific T wave change noted. There is no ST elevation, QTc is 438. Continuous Cardiac Monitoring per my interpretation: An order was placed for continuous cardiac monitoring. The monitor shows a rate of 101 with sinus tachycardia. Imaging/x-ray results per my interpretation: Chest x-ray does not show CHF or pneumonia. COPD/emphysema with suspected. Chronic Medical/Social conditions affecting care: Recent aortic valve replacement, warfarin therapy. Care/Management discussed with: Case management, the on-call hospitalist. Level of care consideration(s): After review of the information above and other included data: --I believe the patient requires escalation of care to admission DISPOSITION: Admission Past Med/Surg History Problem List (Updated 03/19/24 @ 15:33 by Jorge Baird MD) History of aortic valve replacement (Acute) Leukocytosis (Acute) Joint pain (Acute) Dog bite (Acute) Hypoxia (Acute) Complex laceration of right ear (Acute) Dog bite (Acute) Generalized weakness (Acute) Ataxia (Acute) Gout (Acute) Non-productive cough Hypomagnesemia (Acute) Tobacco use Pain and swelling of right lower leg (Acute) Alcohol abuse Neck pain, chronic Right leg pain Contusion of foot, right (Acute) Fracture of great toe of right foot (Acute) Medical History Leaky heart valve Surgical History No pertinent past surgical history Social History Smoking Status: Former smoker Tobacco Type: Cigarettes Second Hand Exposure: No; Do You Dip or Chew Tobacco: No; Hx Alcohol Use: Yes Alcohol type: beer Hx Substance Use: No Preferred Language: Portuguese Communication Ability: Effective Communication Consultant Required: No Beliefs That Will Affect Care: None Current Living Situation: Spouse Feels Safe at Home: Yes Assistive Devices: None Allergies Allergies Allergy/AdvReac Type Severity Reaction Status Date / Time bee venom protein (honey bee) Allergy Severe SHORTNESS Verified 08/15/20 22:17 OF BREATH, SWELLING Home Meds Home Medications Medication Instructions Recorded Confirmed trazodone 100 mg tablet 100 mg PO HS 08/15/20 03/19/24 albuterol sulfate 90 mcg/actuation 2 puff inhalation Q6H PRN Wheezing 03/19/24 03/19/24 aerosol inhaler aspirin 81 mg chewable tablet 81 mg PO DAILY 03/19/24 03/19/24 atorvastatin 20 mg tablet 20 mg PO DAILY 03/19/24 03/19/24 fluticasone 250 mcg-salmeterol 50 1 inh inhalation BID 03/19/24 03/19/24 mcg/dose blistr powdr for inhalation warfarin 2 mg tablet 2 mg PO DAILY 03/19/24 03/19/24 Previous Rx's Medication Instructions Recorded amoxicillin 875 mg-potassium 1 tab PO BID #14 tabs 03/17/24 clavulanate 125 mg tablet Results & Data (ED) Vital Signs Vital Signs - 24 hr 03/19/24 11:43 03/19/24 11:56 03/19/24 12:09 Temperature 37.4 C Temperature Source Temporal Artery Scan Pulse Rate 112 H 101 H Pulse Rate [Left Finger] Respiratory Rate 20 Respiratory Effort / Characteristics Non-Labored Respiratory Depth Normal Blood Pressure 126/86 Blood Pressure [Left Arm] Blood Pressure Mean 99 Blood Pressure Mean [Left Arm] Pulse Oximetry 93 88 L Oxygen Delivery Method Room Air Oxygen Flow Rate Sepsis Recent Fever Within 48 Hours No Sepsis New/Unexplained Change in Mental Status No Sepsis Action Taken by Nursing No Action Required Oxygen Flow Rate - Titration 2 Pulse Oximetry Post Tiitration 93 03/19/24 12:35 03/19/24 13:30 Temperature Temperature Source Pulse Rate Pulse Rate [Left Finger] 96 H 86 Respiratory Rate 20 24 Respiratory Effort / Characteristics Respiratory Depth Blood Pressure Blood Pressure [Left Arm] 130/83 140/88 Blood Pressure Mean Blood Pressure Mean [Left Arm] 98 105 Pulse Oximetry 99 95 Oxygen Delivery Method Nebulizer Nasal Cannula Oxygen Flow Rate 2 Sepsis Recent Fever Within 48 Hours Sepsis New/Unexplained Change in Mental Status Sepsis Action Taken by Nursing Oxygen Flow Rate - Titration Pulse Oximetry Post Tiitration Home Medications Current Medication List: was personally reviewed by me Laboratory Data Attestation: I reviewed the patient's lab results. 03/19/24 12:00 03/19/24 12:00 Lab Results 03/19/24 03/19/24 Range/Units 12:00 13:15 WBC 11.77 H (4.8-10.8) K/ul RBC 4.82 (4.70-6.10) M/uL Hgb 14.4 (14.0-18.0) g/dl Hct 43.4 (42.0-52.0) % MCV 90.0 (80.0-100.0) fL MCH 29.9 (25.0-34.0) pg MCHC 33.2 (32.0-36.0) g/dL RDW Std Deviation 40.6 (36.4-46.3) fL RDW Coeff of Nerissa 12.3 (11.5-14.5) % Plt Count 284 (130-400) K/uL MPV 9.9 (9.4-12.4) fL Immature Gran % (Auto) 0.3 % Neut % (Auto) 70.2 % Lymph % (Auto) 21.3 % [place] % (Auto) 6.6 % Eos % (Auto) 0.9 % Baso % (Auto) 0.7 % Neut # (Auto) 8.26 H (1.40-6.50) K/uL Lymph # (Auto) 2.51 (1.20-3.40) K/uL [place] # (Auto) 0.78 H (0.11-0.59) K/uL Eos # (Auto) 0.11 (0.00-0.50) K/uL Baso # (Auto) 0.08 (0.00-0.20) K/uL Immature Gran # (Auto) 0.03 (0.01-0.20) K/uL ESR 34 H (0-20) mm/hr PT 31.7 H (9.0-12.0) Seconds INR 3.2 H (0.9-1.1) APTT 38 H (21-31) Seconds PTT Ratio 1.4 Sodium 138 (136-145) mmol/L Potassium 3.9 (3.5-5.1) mmol/L Chloride 105 (98-107) mmol/L Carbon Dioxide 26 (21-32) mmol/L Anion Gap 7 (3-11) BUN 12 (6-23) mg/dl Creatinine 0.79 (0.6-1.4) mg/dl Est Cr Clr Drug Dosing 94.2 ml/min eGFR 104.26 BUN/Creatinine Ratio 15.2 (10-20) Glucose 149 H (70-99(Fasting)) mg/dl Calcium 9.1 (8.6-10.3) mg/dl Magnesium 1.7 (1.7-2.4) mg/dl Total Bilirubin 1.5 H (0.2-1.0) mg/dl AST 26 (13-39) U/L ALT 37 (7-52) U/L Alkaline Phosphatase 100 (34-104) U/L Troponin I High Sens 7.4 (0-20) pg/ml C-Reactive Protein 7.96 H (0-0.5) mg/dl B-Natriuretic Peptide 185 H (0-100) pg/ml Total Protein 6.9 (6.0-8.3) gm/dl Albumin 3.7 (3.4-5.0) gm/dl Globulin 3.2 (2.5-4.0) gm/dl Albumin/Globulin Ratio 1.2 (0.9-2) TSH 1.461 (0.300-4.500) uIu/ml Urine Color Yellow Urine Appearance Clear (Clear) Urine pH 5.0 (4.5-7.5) Ur Specific [place] 1.032 H (1.000-1.030) Urine Protein Trace H (Negative) Urine Glucose (UA) Negative (Negative) Urine Ketones Negative (Negative) Urine Blood Negative (Negative) Urine Nitrite Negative (Negative) Urine Bilirubin Negative (Negative) Urine Urobilinogen Negative (Negative) Ur Leukocyte Esterase Negative (Negative) Urine WBC (Auto) 0-5 (0-5) /hpf Urine RBC (Auto) 0-2 (0-2) /hpf U Hyaline Cast (Auto) 0-2 (0-2) /lpf U Epithel Cells (Auto) 0-2 (0-2) /hpf Urine Bacteria (Auto) None Seen (None Seen) Anaplasma Smear See Comment Babesia Smear See Comment Lyme Disease Screen Negative (Negative) Administered Medications Discontinued Medications Albuterol (Albut/Ipratrop 3mg/0.5mg Neb 3 Ml Vial) 3 ml NEB NOW STA; Protocol Stop: 03/19/24 12:24 Last Admin: 03/19/24 12:33 Dose: 3 ml Documented By: MARGA Imaging Data Radiologist's Impression: Chest X-Ray 03/19/24 12:12 XR chest 1V portable CLINICAL HISTORY: chest pain and SOB COMPARISON STUDY: Chest radiograph November 05, 2021. FINDINGS: Severe upper lobe predominant emphysema is present. There is no pneumothorax or pleural effusion. There is no consolidation to suggest pneumonia. There are median sternotomy wires. Cardiomediastinal silhouette is normal. Pulmonary vascularity is normal. Postoperative findings within the spine are incidentally noted. IMPRESSION: 1. No acute cardiopulmonary findings. 2. Emphysema. ACT 112: Negative or not required by law. Electronically signed by: Raymond Crawford M.D. 03/19/2024 12:39 PM Discharge Plan Visit Data Chief Complaint: Swelling/Edema to Extremity Stated Complaint: SWELLING IN LEGS, ON BLOOD THINNER, CANT WALK ED Provider: Jorge Baird Discharge Problem: Hypoxia, Dog bite, Joint pain, Leukocytosis, History of aortic valve replacement Patient Disposition: Admitted As Inpatient Condition: Fair Forms Stand Alone Forms: My [facility] [employer] Prescriptions Prescriptions: No Action trazodone 100 mg tablet 100 mg PO HS amoxicillin-pot clavulanate 875-125 mg tablet 1 tab PO BID Qty: 14 0RF atorvastatin 20 mg tablet 20 mg PO DAILY warfarin 2 mg tablet 2 mg PO DAILY aspirin 81 mg tablet,chewable 81 mg PO DAILY albuterol sulfate 90 mcg/actuation HFA aerosol inhaler 2 puff INHALATION Q6H PRN (Reason: Wheezing) fluticasone propion-salmeterol 250-50 mcg/dose blister with device 1 inh INHALATION BID Referrals Referrals: Alma Nichols DO [Primary Care Provider] - Discharge Problem: Dog bite Qualifiers: Encounter type: subsequent encounter Qualified Code(s): W54.0XXD - Bitten by dog, subsequent encounter Joint pain Qualifiers: Joint pain location: unspecified Qualified Code(s): M25.50 - Pain in unspecified joint Leukocytosis Qualifiers: Leukocytosis type: unspecified Qualified Code(s): D72.829 - Elevated white blood cell count, unspecified
[2024-03-19 12:18] LABS: Basophils # (auto) 0.08 K/uL (0.00-0.20); Basophils % (auto) 0.7 %; Eosinophils # (auto) 0.11 K/uL (0.00-0.50); Eosinophils % (auto) 0.9 %; Hematocrit (blood only) 43.4 % (42.0-52.0); Hemoglobin 14.4 g/dl (14.0-18.0); Immature Granulocytes # (auto) 0.03 K/uL (0.01-0.20); Immature Granulocytes % (auto) 0.3 %; Lymphocytes # (auto) 2.51 K/uL (1.20-3.40); Lymphocytes % (auto) 21.3 %; Mean Corpuscular Hemoglobin 29.9 pg (25.0-34.0); Mean Corpuscular Hgb Conc 33.2 g/dL (32.0-36.0); Mean Platelet Volume 9.9 fL (9.4-12.4); Monocytes # (auto) 0.78 K/uL (0.11-0.59); Monocytes % (auto) 6.6 %; Neutrophils # (auto) 8.26 K/uL (1.40-6.50); Neutrophils % (auto) 70.2 %; Platelet Count 284 K/uL (130-400); RDW Coefficient of Variation 12.3 % (11.5-14.5); RDW Standard Deviation 40.6 fL (36.4-46.3); Red Blood Count 4.82 M/uL (4.70-6.10); White Blood Count 11.77 K/ul (4.8-10.8)
[2024-03-19] MEDS: ALBUT/IPRATROP 3MG/0.5MG NEB 3 ML VIAL NEB STA (12:33)
--- NOTE | 2024-03-19 12:40 | XRay Report ---
XR chest 1V portable CLINICAL HISTORY: chest pain and SOB COMPARISON STUDY: Chest radiograph November 05, 2021. FINDINGS: Severe upper lobe predominant emphysema is present. There is no pneumothorax or pleural eff usion. There is no consolidation to suggest pneumonia. There are median sternotomy wires. Cardiomedia stinal silhouette is normal. Pulmonary vascularity is normal. Postoperative findings within the spine are incidentally noted. IMPRESSION: 1. No acute cardiopulmonary findings. 2. Emphysema. ACT 112: Negative or not required by law. Electronically signed by: Raymond Crawford M.D. 03/19/2024 12:39 PM
[2024-03-19 12:45] LABS: Albumin Globulin Ratio 1.2 (0.9-2); Albumin Level 3.7 gm/dl (3.4-5.0); BUN Creatinine Ratio 15.2 (10-20); Bilirubin,Total 1.5 mg/dl (0.2-1.0); C Reactive Protein 7.96 mg/dl (0-0.5); Calcium 9.1 mg/dl (8.6-10.3); Creatinine Clr Calc Pharmacy 94.2 ml/min; Globulin 3.2 gm/dl (2.5-4.0); Magnesium 1.7 mg/dl (1.7-2.4); Potassium 3.9 mmol/L (3.5-5.1); Total Protein 6.9 gm/dl (6.0-8.3); Troponin I High Sensitivity 7.4 pg/ml (0-20)
[2024-03-19 12:50] LABS: INR 3.2 (0.9-1.1); Partial Thromboplastin Ratio 1.4; Partial Thromboplastin Time 38 Seconds (21-31); Prothrombin Time 31.7 Seconds (9.0-12.0)
[2024-03-19 12:59] LABS: Thyroid Stimulating Hormone 1.461 uIu/ml (0.300-4.500)
[2024-03-19 13:34] LABS: Appearance Urine Clear (Clear); Bacteria Urine Automated None Seen (None Seen); Bilirubin Urine Negative (Negative); Blood Urine Negative (Negative); Cast Urine Automated 0-2 /lpf (0-2); Color Urine Yellow; Epithelial Cell Urine Auto 0-2 /hpf (0-2); Glucose Urine UA Negative (Negative); Ketones Urine Negative (Negative); Leukocyte Esterase Urine Negative (Negative); Nitrite Urine Negative (Negative); Protein Urine Trace (Negative); RBC Urine Automated 0-2 /hpf (0-2); Specific Gravity Urine 1.032 (1.000-1.030); Urobilinogen Urine Negative (Negative); WBC Urine Automated 0-5 /hpf (0-5)
--- NOTE | 2024-03-19 15:00 | History & Physical Report ---
Date of Service March 19, 2024 Assessment & Plan (1) Chest wall discomfort: Plan: This is a 54yo M with a PMH of [place] on 02/[address] [facility], on coumadin[place] gout, COPD, CAROLE and other medical problems listed below who presents with chest wall pain. In setting of dog attack on 03/17, likely MSK related pain but did have recent valve replacement [place] [facility] last month Tylenol, lidocaine, ice, incentive spirometry Cardiology consulted, trend troponin, 2D echo, telemetry given recent history (2) History of aortic valve replacement: Plan: S/p Aortic valve replacement on 02/[address] [facility] [place]) Repeat echo Continue coumadin Daily INR (3) Gout flare: Plan: R knee, L ankle Uric acid pending Starting colchicine (4) Dog bite: (5) Complex laceration of right ear: Plan: S/p dog attack 03/17, complex lac repair of R ear by Dr. Escobedo Continue Augmentin course Dr. Escobedo consulted (was due for f/u on Wednesday) PRN tylenol, oxycodone Wound care DVT Ppx: Coumadin Code status: FULL PCP: Simone Dispo: Admitted to PCU Patient seen in collaboration with Dr. Mims. Please see addendum. I spent a total of 60 minutes coordinating, documenting, and providing care for this patient excluding time spent in the performance of separately billed services. History of Present Illness Chief Complaint: CP Primary Care Provider: Alma Nichols, DO This is a 54yo M with a PMH of aortic valve replacement on 02/[address] [facility] [place], on coumadin), gout, COPD, CAROLE and other medical problems listed below who presents with chest wall pain. Two days ago, patient was resting at home when his dog attacked him, causing ear injury requiring lac r epair by oral maxillofacial surgeon Dr. Escobedo. Was discharged on Augmentin prophylactically and returned home. During the attack, patient states he lunged to the left away from the dog, and has had a twinging pain across his chest since then. Pain on chest wall is worse with movement and also painful with deep inspiration. Feels like he has not been able to take deep breaths. He has noticed joint pain in the feet and knees and he has had some swelling of the knees. The pain is increased to the point where he cannot walk. No F/C, headache, lightheadedness, wheezing, nausea, vomiting, abdominal pain, dysuria, diarrhea or constipation. Allergies Allergy/AdvReac Type Severity Reaction Status Date / Time bee venom protein (honey bee) Allergy Severe SHORTNESS Verified 08/15/20 22:17 OF BREATH, SWELLING Home Medications Medication Instructions Recorded Confirmed Type trazodone 100 mg tablet 100 mg PO HS 08/15/20 03/19/24 History amoxicillin 875 mg-potassium 1 tab PO BID #14 tabs 03/17/24 03/19/24 Rx clavulanate 125 mg tablet albuterol sulfate 90 mcg/actuation 2 puff inhalation Q6H PRN Wheezing 03/19/24 03/19/24 History aerosol inhaler aspirin 81 mg chewable tablet 81 mg PO DAILY 03/19/24 03/19/24 History atorvastatin 20 mg tablet 20 mg PO DAILY 03/19/24 03/19/24 History fluticasone 250 mcg-salmeterol 50 1 inh inhalation BID 03/19/24 03/19/24 History mcg/dose blistr powdr for inhalation warfarin 2 mg tablet 2 mg PO DAILY 03/19/24 03/19/24 History Past Med/Surg History Problem List (Updated 03/19/24 @ 17:29 by Brittany Hawkins PA-C) Gout flare Chest wall discomfort History of aortic valve replacement (Acute) Leukocytosis (Acute) Joint pain (Acute) Dog bite (Acute) Hypoxia (Acute) Complex laceration of right ear (Acute) Dog bite (Acute) Generalized weakness (Acute) Ataxia (Acute) Gout (Acute) Non-productive cough Hypomagnesemia (Acute) Tobacco use Pain and swelling of right lower leg (Acute) Alcohol abuse Neck pain, chronic Right leg pain Contusion of foot, right (Acute) Fracture of great toe of right foot (Acute) Medical History Leaky heart valve Surgical History No pertinent past surgical history Family History Other Cancer Stroke Social History Smoking Status: Former smoker Tobacco Type: Cigarettes Smoking End Date: 12-16-23; Second Hand Exposure: No; Do You Dip or Chew Tobacco: No; Tobacco Cessation Education Requested by Patient: No Hx Alcohol Use: Yes (history, stopped 12-09-23) Alcohol type: other Hx Substance Use: Yes Last Used Substance: Unknown Preferred Language: Sinhala Communication Ability: Effective Roll Filler Required: No Beliefs That Will Affect Care: None Current Living Situation: Significant Other Current Living Situation Comment: Lives with . Other Information That Helps Us Care for You: No Feels Safe at Home: Yes Safety Concerns: Feels Safe At This Time Assistive Devices: None Review of Systems Review of Systems: At least ten systems reviewed and negative except as noted in the HPI. Physical Exam Physical Exam: Please see Dr. Mims's addendum for physical exam. Results & Data Results & Data Vital Signs (Past 12 Hours) Vital Signs Temp Pulse Pulse Resp BP BP Pulse Ox 03/19/24 13:30 86 24 140/88 95 03/19/24 12:35 96 H 20 130/83 99 03/19/24 12:09 88 L 03/19/24 11:56 101 H 03/19/24 11:43 37.4 C 112 H 20 126/86 93 O2 Del Method O2 Flow Rate 03/19/24 13:30 Nasal Cannula 2 03/19/24 12:35 Nebulizer 03/19/24 12:09 03/19/24 11:56 03/19/24 11:43 Room Air Laboratory Results Short CBC 03/19/24 Range/Units 12:00 WBC 11.77 H (4.8-10.8) K/ul Hgb 14.4 (14.0-18.0) g/dl Hct 43.4 (42.0-52.0) % Plt Count 284 (130-400) K/uL BMP 03/19/24 12:00 Sodium 138 Potassium 3.9 Chloride 105 Carbon Dioxide 26 BUN 12 Creatinine 0.79 Glucose 149 H Calcium 9.1 Liver Function 03/19/24 Range/Units 12:00 Total Bilirubin 1.5 H (0.2-1.0) mg/dl AST 26 (13-39) U/L ALT 37 (7-52) U/L Alkaline Phosphatase 100 (34-104) U/L Albumin 3.7 (3.4-5.0) gm/dl Urine 03/19/24 Range/Units 13:15 Urine Color Yellow Urine Appearance Clear (Clear) Urine pH 5.0 (4.5-7.5) Ur Specific [place] 1.032 H (1.000-1.030) Urine Protein Trace H (Negative) Urine Glucose (UA) Negative (Negative) Diagnostic Findings Chest X-Ray 03/19/24 12:12 XR chest 1V portable CLINICAL HISTORY: chest pain and SOB COMPARISON STUDY: Chest radiograph November 05, 2021. FINDINGS: Severe upper lobe predominant emphysema is present. There is no pneumothorax or pleural effusion. There is no consolidation to suggest pneumonia. There are median sternotomy wires. Cardiomediastinal silhouette is normal. Pulmonary vascularity is normal. Postoperative findings within the spine are incidentally noted. IMPRESSION: 1. No acute cardiopulmonary findings. 2. Emphysema. ACT 112: Negative or not required by law. Electronically signed by: Raymond Crawford M.D. 03/19/2024 12:39 PM Code Status & VTE Plan VTE Prophylaxis Plan VTE Prophylaxis will be ordered: Yes Supervising Physician Co-Signing Physician Notes Patient is a 54-year-old male who recently had aortic valve replacement, gout, COPD and other medical problems presents with history of chest pain, right knee and left ankle pain. Apparently 2 days ago patient was attacked by his dog causing injury to his right your requiring suturing. Patient also lunge away from the dog resulting in causing pain to his surgical site on his chest. He was started empirically on Augmentin. Patient admits to have pain with deep inspirations. He denies any fever, chills. He also noticed to develop significant pain of his knees and ankles with some swelling and tenderness. Please review HPI for complete details of presentation. I personally reviewed blood work and imaging studies. White count elevated at 11.7 K, INR supratherapeutic 3.2, creatinine elevated 1.5, glucose 149, CRP 7.9, procalcitonin normal, uric acid 7.3. BNP 185. Chest x-ray showed findings suggestive of emphysema but otherwise no acute process. Physical Exam: Vitals signs as noted above General Appearance: Thin, frail, no apparent distress Head: normocephalic, Atraumatic,+ right ear suturing Eyes: normal inspection, EOMI Neck: supple, Trachea midline Respiratory/Chest: Normal breath sounds, CTA, No accessory muscle use, + well- healing surgical scar Cardiovascular: S1, S2,+? Metallic heart sound, no murmur Abdomen/GI:Soft, Non tender, Bowel sounds present Extremities/Musculoskeletal:normal inspection, trace edema, + right knee, left ankle tender on palpation, mild erythema Neurologic/Psych:AAOX3, grossly no focal neurological deficits Skin: normal color, warm Chest pain Likely musculoskeletal Elevated BNP Trend troponins, check resting echo Given recent AVR, will consult cardiology Supratherapeutic INR Hold Coumadin today Monitor INR Acute kidney injury Creatinine 1.5 Avoid nephrotoxic agents as able Continue IV fluids Acute gout flare Elevated uric acid levels Started on colchicine Eventually will need to be started on maintenance medications COPD No signs of exacerbation Transient hypoxia in ED likely due to shallow breathing secondary to chest pain Incentive spirometry Dog bite Continue Augmentin Consulted Dr. Escobedo I personally interviewed and examined at bedside. Patient's care is coordinated with Brittany Hawkins PA-C. I have reviewed the advanced practitioner's documentation, and I agree with plan of care. Please refer to the documentation above for details of patient's presentation and for discussion of other issues. I spent a total [id number] coordinating, documenting, and providing care for this patient excluding time spent in the performance of separately billed services. (4) Dog bite Encounter type: subsequent encounter Qualified Code(s): W54.0XXD - Bitten by dog, subsequent encounter
--- OUTSIDE RECORDS SUMMARY | 2024-03-19 15:58 | External Medical Summary | Summary of Care ---
Author Name Unknown Organization [facility] Address [address] [place] [address] Phone [phone] Care Team Providers Care Lease Purchase Truck Driver Name Role Phone Simone Alma Ochoaly Primary Care Provider Reason for Visit * Reason Onset Date Comments Advice 03/19/2024 Phone call Encounter Details Date Type Department Care Team ([facility] st Contact Info) Description 03/19/2024 Telephone Cardiology, [facility] [address] [facility] [place] [address] Wilian Zimmer, PAKatalinaC [address] [facility], [place] [address] Advice (Phone call ) Allergies Active Allergy Reactions Criticality Noted Date Comments Bee Venom Anaphylaxis High 02/01/2019 documented as of this encounter (statuses as of 03/19/2024) Medications Fluticasone-Jose meterol 250-50 MCG/ACT Inhalation Aerosol Powder Breath Activated (Advair Diskus)Indicati ons:Chronic obstructive pulmonary disease, unspecified COPD type (HCC) Inhale 1 Puff by mouth in the morning and 1 Puff before bedtime. 60 Each 5 06/16/19 24 Active traZODone HCl 100 MG Oral Tablet (Desyrel)Indica tions:Primary insomnia TAKE TWO TABLETS BY MOUTH EVERY EVENING AT BEDTIME 180 Tablet 2 12/10/19 24 Active Aspirin 81 MG Oral Tablet Chewable Take 1 Tablet by mouth in the morning. 100 Tablet 3 01/25/20 24 Active Atorvastatin Calcium 20 MG Oral Tablet (Lipitor) Take 1 Tablet by mouth every afternoon. 90 Tablet 3 01/25/20 24 Active Furosemide 40 MG Oral Tablet (Lasix) Take 1 Tablet by mouth in the morning. Take for 30 days, then stop. 30 Tablet 4 8:46 AM EST 02/15/20 24 Active Potassium Chloride ER 10 MEQ Oral Tablet Extended Release Take 2 Tablets by mouth in the morning. Take for 30 days, then stop. 60 Tablet 4 8:46 AM EST 02/15/20 24 Active Vitamin and Mineral 28-0.8 MG Oral Tablet Take 1 Tablet by mouth in the morning. 30 Tablet 4 8:46 AM EST 02/15/20 24 Active Famotidine 20 MG Oral Tablet (Pepcid) Take 1 Tablet by mouth in the morning. Take for 30 days, then stop. 30 Tablet 4 8:46 AM EST 02/15/20 24 Active Warfarin Sodium 2 MG Oral Tablet (Coumadin) Take tablet by mouth daily as directed by discharge instructions and the anticoagulation clinic. 30 Tablet 2 4 9:12 AM EST 02/15/20 24 Active Proventil HFA 108 (90 Base) MCG/ACT Inhalation Aerosol Solution Inhale 2 Puffs by mouth every 6 hours as needed for Wheezing. 6.7 g 3 03/10/20 24 Active Hospital, Clinic, or Other Facility Administered Medication Ordered Dose Route Frequency Start Date End Date Status Albuterol Sulfate (Proventil) (2.5 MG/3ML) 0.083% inhalation solution 2.5 mgIndications:Chronic obstructive pulmonary disease, unspecified COPD type (HCC),Tobacco use disorder 2.5 mg NEBULIZER ONCE PRN 06/16/2023 06/15/2024 Active documented as of this encounter (statuses as of 03/19/2024) Active Problems Problem Noted Date Diagnosed Date S/P AVR (aortic valve replacement) 02/09/2024 Aortic valve disorder 02/01/2024 Chronic obstructive pulmonary disease 09/17/2022 Other chronic pancreatitis 09/03/2022 Other specified spondylopathies, cervical region 02/10/2022 Osteoarthritis of cervical spine with myelopathy 01/29/2022 Osteoarthritis of spine with myelopathy 12/26/19 Mild mitral regurgitation 07/15/2021 Alcohol use disorder, mild, abuse 01/13/2021 High triglycerides 01/13/2021 Elevated LFTs 01/13/2021 CAROLE (generalized anxiety disorder) 07/18/2020 Moderate aortic regurgitation 02/01/2019 Nonobstructive atherosclerosis of coronary arter y 02/01/2019 Abnormal AST and ALT 02/02/2017 Tobacco use disorder 06/08/2000 Abdominal or pelvic swelling , mass, or lump, other specified site documented as of this encounter (statuses as of 03/19/2024) Resolved Problems Problem Noted Date Diagnosed Date Resolved Date Alcohol-induced chronic pancreatitis 07/15/2021 05/11/2022 Respiratory failure, acute 12/31/2016 0 12/31/2016 Overview (06/23/2007): required intubation; aspiration pneumonia Chronic pancreatitis 01/19/2007 023 Overview (06/23/2007): Alcohol related pancreatitis; started having Sx in 2002; Alcohol ADVANCE DIRECTIVE INFORMATION 01/29/2005 03/23/2017 Overview (08/03/2007): No, Advance Directive brochure offered , patient declined. No, Advance Directive brochure offered , patient declined. ACUTE PANCREATITIS(aka PANCREATITIS) 02/11/2004 12/31/2016 Alcohol dependence in remission 02/11/2004 02/08/2020 ALCOHOL ABUSE-CONTINUOUS 06/08/200011/2003 Counseling for marital and partner problems 06/08/2000 02/06/2008 Overview (01/04/2020): ICD-10 update of inactive term Depression with anxiety 07/04 documented as of this encounter (statuses as of 03/19/2024) Immunizations Name Administration Dates Next Due COVID-19 mRNA, LNP-s, No Pre serve, 2-Dose Series (Dr. Jerry's Smooth Move) 02/24/2021,06/22/2020,06/01/2020 Pneumococcal Conjugate Vacci ne, 20-valent ([id number]) 01/16/2022 Pneumococcal Polysaccharide PPV23 (Pneumovax) 02/19/2010 Seasonal Influenza Vac., MDV , IM, 0.5 mL (Fluzone) 01/18/2014,02/01/2013,05/24/2012,03/06,02/19/2010 01/18/2015 Seasonal Influenza, PF, 6 M & above, IM , (FluLaval or Fluzone) 2023,01/16/2022,01/16/2020,01/03,01/13/2018,12/29/2016 Seasonal Influenza, Quadriva lent, No Preserve, IM 01/03/2016,12/28/2014 Seasonal Influenza, Trivalen t, (IIV3), PF, (Fluzone) 02/01/2024 TDAP (age 10 and older)(Boostrix) 12/09/2021 TDAP, Age 7 and older, IM (Adacel) 03/27/2011 Zoster Vaccine Recombinant (Shingrix) 05/03/2020 ,02/08/2020 documented as of this encounter Social History Tobacco Use Types Packs/Day Years Used Date Smoking Tobacco: Former Cigarettes 1.5 44.7 1 980 - 12/16/2023 Smokeless Tobacco: Never Comments:Wants to quit today Alcohol Use Standard Drinks/Week Comments Not Currently 0 (1 standard drink = 0.6 oz pure alcohol) Last drink: 12/09/2023, 6 drinks/day x 20 years PHQ-2 Answer Date Recorded PHQ Adult Total Score 1 02/16/2024 Hunger Vital Sign Answer Date Recorded Within the past 12 months, y ou worried that your food would run out before you got the money to buy more. Never true 12/28/19 24 Within the past 12 months, t he food you bought just didn't last and you didn't have money to get more. Never true 12/28/2023 Childcare Answer Date Recorded Do you feel overwhelmed with taking care of a child, family member or friend? No 12/28/2023 Does your family need help f inding childcare? (Household - for ages 0-17 years) Not on file 12/28/2023 Clothing Answer Date Recorded Have you been unable to get clothing when it was really needed? No 12/28/2023 Is your family able to get c lothes or diapers when needed? (Household - for ages 0-17 years) Not on file 12/28/2023 Personal Safety Answer Date Recorded Do you feel unsafe or have concerns for your saf ety? No 12/28/2023 Do you have concerns for you r family's safety? (Household - for ages 0-17 years) Not on file 12/28/2023 Utilities Answer Date Recorded Do you have trouble paying y our heating, water, or electric bill? No 12/28/2023 Is your family able to pay t he heat, water, or electric bill? (Household - for ages 0-17 years) Not on file 12/28/2023 Does your family have access to good internet? (Household - for ages 0-17 years) Not on file 12/28/2023 Employment Status Answer Date Recorded Are you unemployed or without regular income? No 12/28/2023 Does the household have a re gular source of income? (Household - for ages 0-17 years) Not on file 12/28/2023 Social Connections Answer Date Recorded How often do you feel lonely or isolated from th ose around you? Never 12/28/2023 Financial Resource Strain Answer Date R ecorded Do you have any trouble payi ng for your medications, or do you think you might in the future? No 12/28/2023 Does your family have troubl e paying for medicine? (Household - for ages 0-17 years) Not on file 12/28/2023 Transportation Needs Answer Date Record ed Do you have trouble getting a ride to medical visits or work? (Adult - for ages 18 years and over) Not on file 12/28/2023 Does your family have a hard time getting a ride to doctors visits? (Household - for ages 0-17 years) Not on file 12/28/2023 Has lack of transportation k ept you from medical appointments, meetings, work, or from getting things needed for daily living? Check all that apply. No 12/28/2023 Do you (or your family) have trouble finding or paying for a ride (transportation)? (Household - for ages 0-17 years) Not on file 12/28/2023 Housing Stability Answer Date Recorded Do you currently live in a s helter or have no steady place to sleep at night? No 12/28/2023 Do you think you are at risk of becoming homeless? (Adult - for ages 18 years and over) Not on file 12/28/2023 Does your family worry about paying for your home or becoming homeless? (Household - for ages 0-17 years) Not on file 0 12/28/2023 Are you homeless or worried that you might be in the future? No 12/28/2023 Are you (or your family) man eless or worried that you might be in the future? (Household - for ages 0-17 years) Not on file Food Insecurity Answer Date Recorded Do you need food for this week? No 12/28/2023 Are you able to get enough f ood for your family? (Household - for ages 0-17 years) Not on file 12/28/2023 Does your family need food t his week? (Household - for ages 0-17 years) Not on file 12/28/2023 Do you always have enough fo od for your family? 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 Answer Date of Assessment Author No 02/09/2024 4:53 PM EST Jesus Castaneda, RN * Are you blind or do you have serious difficulty seeing, even when wearing glasses? Answer Date of Assessment Author Yes 02/09/2024 4:53 PM Jesus Mcdaniel, RN * Do you have serious difficulty walking or climbing stairs? (5 years old or older) Answer Date of Assessment Author No 02/09/2024 4:53 PM Jesus Mcdaniel, RN * Do you have difficulty dressing or bathing? (5 years old or older) Answer Date of Assessment Author No 02/09/2024 4:53 PM Jesus Mcdaniel, RN * Because of a physical, mental, or emotional condition, do you have difficulty doing errands alone such as visiting a doctors office or shopping? (15 years old or older) Answer Date of Assessment Author No 02/09/2024 4:53 PM EST Jesus Castaneda son, RN documented as of this encounter Mental Status * Because of a physical, mental, or emotional condition, do you have serious difficulty concentrating, remembering, or making decisions? (5 years old or older) Answer Entry Date Author No 02/09/2024 4:53 PM EST Jesus Castaneda son, RN documented in this encounter Miscellaneous Notes * Telephone Encounter - Marcie Doss OSA - 03/19/2024 2:44 PM EST Person calling: Marylin Relationship to patient: Phone/Fax to return call: MARYLIN hobbs Spouse [phone] Reason for call(brief): return phone call Pharmacy: Provider Name:Wilian Zimmer Detailed message to office:pt would would like Silverio to call her her was attacked by the dog and he was in the hospital/ had surgery on his ear and now is having LE swelling Thank you FELIX Bustos documented in this encounter Plan of Treatment Upcoming Encounters Date Type Department Care Team (Late st Contact Info) Description 03/22/2024 10:35 AM EST [facility] [address] [facility] [place] [id number] 03/22/2024 11:30 AM EST [facility] [address] [facility] [place] [address] 03/28/2024 8:40 AM EST [place] [facility] [place] [place] [address] [facility] [place] [address] Pharmacist1, [facility] [address] [facility] [place] [address] 06/01/2024 9:30 AM EST [facility] [address] [facility] [place] [address] Wilian Zimmer PA-C [address] [place] [address] 07/10/2024 10:15 AM EDT Imaging Radiology [address] [place] [address] Scheduled Procedures Name Priority Associated Diagnoses Date/Ti me COLONOSCOPY FLEXIBLE PROXIMA L DIAGNOSTIC Recall Family history of colon cancer Health Maintenance Due Date Last Done Comments HIV Screening 01/14/1983 Alpha-1 Antitrypsin 01/14/1986 Hepatitis C Screening 01/14/1986 Hepatitis B Vaccine (1 of 3 - 19+ 3-dose series) 01/14/1987 Cologuard 01/14/2013 Fecal Occult Blood Test 01/14/2013 Sigmoidoscopy 01/14/2013 Colonoscopy 08/06/2023 08/05/2018, 08/05/2018 Colorectal Cancer Screening 08/06/2023 COVID-19 Vaccine ( season) 2023 02/24/2021, 06/22/2020, 06/01/2020 O2 ASSESSMENT COMPLETED IN PAST YEAR FOR COPD 02/08/2025 02/09/2024 Depression Screening 02/15/2025 02/16/2024 DTap/Tdap Vaccines (3 - Td or Tdap) 12/10/2031 12/09/2021, 03/27/2011, 04/05/2000 RETIRED - COLONOSCOPY-EVERY 5 YRS AGES 18-100 Discontinued 08/05/2018, 08/05/2018 Zoster Vaccines Completed 05/03/2020, 02/08/2020 Pneumococcal Vaccine: Pediatrics (0 to 5 Years) and At-Risk Patients (6 to 64 Years) Completed 01/16/2022, 02/19/2010 Lung Cancer Screening Completed 09/16/2023 , 09/14/2022, 08/24/2022, Additional history exists Influenza Vaccine (FLU shot) Completed 02/01/2024, 2023, 01/16/2022, Additional history exists HPV (Gardasil) Vaccine Aged Out No lo nger eligible based on patient's age to complete this topic MENINGOCOCCAL (MENACTRA/MENVEO) Aged Out No longer eligible based on patient's age to complete this topic documented as of this encounter Medical Devices Implanted Type Area Director Of Maintenance Device Identifier Shelf Expiration Date Model / Serial / Lot Cervical Vertigraft 4x6 - [id number] - [id number] Implanted:Qty : 1 on 01/30/2022 by Konrad Lamb MD at OR [facility] N/A: Spine Cervical LIF[employer]ET 02/05/2026 [id number] / 7 Cervical Vertigraft 4x6 - [id number] - [id number] Implanted:Qty : 1 on 01/30/2022 by Konrad Lamb MD at OR [facility] N/A: Spine Cervical LIFENET 04/30/2026 [id number] / 2 2 Adeola Corpectomy Cage System Implanted:Qty : 1 on 01/30/2022 by Konrad Lamb MD at OR [facility] N/A: Spine Cervical [employer] 12/16/2025 [id number] / / [id number] Description:[id number], 20-24mm , 0-20degree Plate Cj 4 Level Ti 72mm - [id number] Implanted:Qty : 1 on 01/30/2022 by Konrad Lamb MD at OR [facility] N/A: Spine Cervical JNJ : DEPUY SPINE [id number] / / Screw Cj Const Sd Ti 14mm - [id number] Implanted:Qty : 8 on 01/30/2022 by Konrad Lamb MD at OR [facility] N/A: Spine Cervical JNJ : DEPUY SPINE [id number] / / Suture Steel 6 B&S19 M654g - [id number] Implanted:Qty : 8 on 02/09/2024 by Wilian Maravilla MD at OR [facility] N/A: Sternum JNJ : [employer] 11/02/2028 [id number] / / [id number] Valve Aortic Mech 21mm - [id number] - [id number] Implanted:Qty : 1 on 02/09/2024 by Wilian Maravilla MD at OR [facility] Heart [employer] [id number] 11/09/2029 ONXACE -21 / [id number] / [id number] documented as of this encounter Advance Directives * Full Code (Latest Code Status on File) Date Activated Date Inactivated Comments 02/09/2024 12:42 PM 02/15/2024 1:33 PM This order reflects the patients wishes and were consensually agreed upon. Question Answer Comments Discussion of Advance Directives occurred with: Patient * Full Code Date Activated Date Inactivated Comments 01/30/2022 1:30 PM 02/02/2022 3:44 PM This order reflects the patients wishes and were consensually agreed upon. Question Answer Comments Discussion of Advance Directives occurred with: Patient Does the patient have a Living Will? No Does the patient have Health Care Power of Attor linda? No * Full Code Date Activated Date Inactivated Comments 01/30/2022 8:27 AM 01/30/2022 1:30 PM This order reflects the patients wishes and were consensually agreed upon. Question Answer Comments Discussion of Advance Directives occurred with: Not Discussed Care Teams Lease Purchase Truck Driver Relationship Specialty Start Date End Date Alma Nichols DO [address] [place] [address] PCP - General Family Medicine 04/30/16 documented as of this encounter
[2024-03-19] MEDS ORDERED: ALBUTEROL HFA 8 GM INHALER INH PRN (16:05)
[2024-03-19] MEDS ORDERED: ALBUT/IPRATROP 3MG/0.5MG NEB 3 ML VIAL NEB PRN (16:05)
[2024-03-19] MEDS ORDERED: POLYETHYLENE (MIRALAX) 17 GM PACK PO PRN (16:05)
[2024-03-19] MEDS ORDERED: ONDANSETRON INJ 2 MG/ML 2 ML VIAL IV PRN (16:05)
[2024-03-19] MEDS: MAGNESIUM SULFATE / D5W 1 GM/100 ML BAG IV ONE (16:38)
[2024-03-19] MEDS: POTASSIUM CHLORIDE CRTAB 20 MEQ TABCR PO ONE (16:39)
[2024-03-19] MEDS: ACETAMINOPHEN 325 MG TAB PO PRN (16:49)
[2024-03-19] MEDS: SODIUM CHLORIDE 0.9% 1,000 ML IV ONE (16:50)
[2024-03-19] MEDS: COLCHICINE 0.6 MG TAB PO ONE ×2 (17:34→22:39)
[2024-03-19] MEDS: WARFARIN SOD 1 MG TAB PO SCH (17:34)
[2024-03-19 18:10] LABS: Uric Acid 7.3 mg/dl (2.6-7.2)
[2024-03-19 18:18] LABS: Troponin I High Sensitivity 6.4 pg/ml (0-20)
[2024-03-19] MEDS: LIDOCAINE 5% 1 PATCH TD STA (18:50)
--- NOTE | 2024-03-19 21:21 | Oral/Maxillofacial Consult ---
Date of Consultation March Assessment & Plan (1) History of aortic valve replacement: (2) Dog bite: (3) Complex laceration of right ear: History of Present Illness Reason for Consultation: ear laceration right secondary to dog bite Requesting Physician: ER Attending Physician: Christiano Mism MD History of Present Illness Complex dog bite to right ear with exposed cartilage. Recent aortic valve replacement on Warfarin. Diagnoses History of aortic valve replacement Z95.2 Dog bite W54.0XXD Complex laceration of right ear, initial encounter S01.311A CPT Codes COMPLEX REPAIR EYELID/NOSE/EAR/LIP 2.6-7.5 CM - 79795 ([id number]) I was called to the ER to evaluate this complex ear laceration (right). The PA in the ER localized the right ear and started to close but discovered that the tissue was missing and requested I see the patient and take over the wound closure. The Ear was cleaned with normal saline and more local was used to insure a more profound block. I now undermined the thin skin from the cartilage and was able to advance the skin over the exposed helix cartilage. About 3/4 of the helix cartilage was exposed- this was about 2 cm of exposed cartilage. I used a 5-0 Vicryl suture to obtain closure. There was also a 2 cm cm deep laceration behind the ear into the post auricular area which I also repaired with the 5-0 Vicryl. Do to being on a blood thinner I also placed a few deep sutures to eliminate taryn d space and to insure no hematoma formation. Once the repair was completed I placed a valine dressing and then a pressure dressing on the ear. I requested the dressing remains in place until I see him on Wednesday in my office. I discussed the management with the ER PA and re for pain med and antibiotics will be ordered. 4 CM COMPLEX EAR LACERATION SECONDARY TO DOG BITE-RIGHT EAR, EXPOSED CARTILAGE Allergies Allergy/AdvReac Type Severity Reaction Status Date / Time bee venom protein (honey bee) Allergy Severe SHORTNESS Verified 08/15/20 22:17 OF BREATH, SWELLING Home Medications Medication Instructions Recorded Confirmed Type trazodone 100 mg tablet 100 mg PO HS 08/15/20 03/19/24 History amoxicillin 875 mg-potassium 1 tab PO BID #14 tabs 03/17/24 03/19/24 Rx clavulanate 125 mg tablet albuterol sulfate 90 mcg/actuation 2 puff inhalation Q6H PRN Wheezing 03/19/24 03/19/24 History aerosol inhaler aspirin 81 mg chewable tablet 81 mg PO DAILY 03/19/24 03/19/24 History atorvastatin 20 mg tablet 20 mg PO DAILY 03/19/24 03/19/24 History fluticasone 250 mcg-salmeterol 50 1 inh inhalation BID 03/19/24 03/19/24 History mcg/dose blistr powdr for inhalation warfarin 2 mg tablet 2 mg PO DAILY 03/19/24 03/19/24 History Patient History Medical History (Reviewed 03/19/24 @ :24 by Brittany Hawkins PA-C) Leaky heart valve Surgical History (Reviewed 03/19/24 @ :24 by Brittany Hawkins PA-C) No pertinent past surgical history Family History Other Cancer Stroke Social History Smoking Status: Former smoker Tobacco Type: Cigarettes Smoking End Date: 12-16-23; Second Hand Exposure: No; Do You Dip or Chew Tobacco: No; Tobacco Cessation Education Requested by Patient: No Hx Alcohol Use: Yes (history, stopped 12-09-23) Alcohol type: other Hx Substance Use: Yes Last Used Substance: Unknown Preferred Language: Salvadorean Communication Ability: Effective Filenet Admin Required: No Beliefs That Will Affect Care: None Current Living Situation: Significant Other Current Living Situation Comment: Lives with . Other Information That Helps Us Care for You: No Feels Safe at Home: Yes Safety Concerns: Feels Safe At This Time Assistive Devices: None Results & Data Vital Signs (Past 12 Hours) Vital Signs Temp Pulse Pulse Resp BP BP Pulse Ox 03/19/24 19:39 36.5 C 80 18 145/87 H 93 03/19/24 17:14 03/19/24 16:19 36.3 C L 81 14 150/84 H 97 03/19/24 15:40 91 H 20 140/88 95 03/19/24 13:30 86 24 140/88 95 03/19/24 12:35 96 H 20 130/83 99 03/19/24 12:09 88 L 03/19/24 11:56 101 H 03/19/24 11:43 37.4 C 112 H 20 126/86 93 O2 Del Method O2 Flow Rate 03/19/24 19:39 Room Air 03/19/24 17:14 Nasal Cannula 2 03/19/24 16:19 Nasal Cannula 2 03/19/24 15:40 Room Air 03/19/24 13:30 Nasal Cannula 2 03/19/24 12:35 Nebulizer 03/19/24 12:09 03/19/24 11:56 03/19/24 11:43 Room Air PG Care Time/CCT Total # of Minutes Spent Total Time Spent with Patient: Total time spent is greater than 50% in coordination of care (as documented) at patient's floor/unit and/or counseling patient: Coding Level of Care Code None Diagnoses History of aortic valve replacement Z95.2 Dog bite W54.0XXD Encounter type: subsequent encounter Complex laceration of right ear, initial encounter S01.311A Encounter type: initial encounter CPT Codes COMPLEX REPAIR EYELID/NOSE/EAR/LIP 2.6-7.5 CM - 50357 ([id number]) (2) Dog bite Encounter type: subsequent encounter Qualified Code(s): W54.0XXD - Bitten by dog, subsequent encounter (3) Complex laceration of right ear Encounter type: initial encounter Qualified Code(s): S01.311A - Laceration without foreign body of right ear, initial encounter
[2024-03-19] MEDS: AMOXICILLIN/CLAVULANATE 875 MG TAB PO SCH (21:38)
[2024-03-19] MEDS: oxyCODONE HCL IR 5 MG TAB (IMMEDIATE RELEASE) PO PRN (21:38)
[2024-03-19] MEDS: traZODone HCL 100 MG TAB PO SCH (21:39)
[2024-03-20] MEDS: ACETAMINOPHEN 500 MG TAB PO PRN (05:21)
--- NOTE | 2024-03-20 05:40 | Electrocardiogram Report ---
Test Reason : Blood Pressure : */* mmHG Vent. Rate : 101 BPM Atrial Rate : 101 BPM P-R Int : 138 ms QRS Dur : 76 ms QT Int : 338 ms P-R-T Axes : 92 81 239 degrees QTcB Int : 438 ms Sinus tachycardia with occasional Premature ventricular complexes Nonspecific T wave abnormality Abnormal ECG When compared with ECG of 17-Mar-2024 05:25, No significant change was found Confirmed by Ty Payton ([id number]) on 03/20/2024 5:40:23 AM Referred By: Confirmed By: Ty Payton
[2024-03-20 07:16] VITALS: RESP 20
[2024-03-20] MEDS: FLUTICASONE/VILANTEROL 200/25MCG 14 PUFFS/INHALER INH SCH (07:49)
[2024-03-20] MEDS: ATORVASTATIN 20 MG TAB PO SCH (07:49)
[2024-03-20] MEDS: ASPIRIN 81 MG CHEW PO SCH (07:49)
[2024-03-20 08:35] LABS: Hematocrit (blood only) 41.2 % (42.0-52.0); Hemoglobin 13.4 g/dl (14.0-18.0); Mean Corpuscular Hemoglobin 29.4 pg (25.0-34.0); Mean Corpuscular Hgb Conc 32.5 g/dL (32.0-36.0); Mean Corpuscular Volume 90.4 fL (80.0-100.0); Mean Platelet Volume 9.8 fL (9.4-12.4); Platelet Count 264 K/uL (130-400); RDW Coefficient of Variation 12.5 % (11.5-14.5); RDW Standard Deviation 41.2 fL (36.4-46.3); Red Blood Count 4.56 M/uL (4.70-6.10); White Blood Count 9.63 K/ul (4.8-10.8)
[2024-03-20 08:51] LABS: BUN Creatinine Ratio 15.1 (10-20); Calcium 8.9 mg/dl (8.6-10.3); Creatinine Clr Calc Pharmacy 102.3 ml/min; Magnesium 1.9 mg/dl (1.7-2.4); Potassium 4.3 mmol/L (3.5-5.1)
[2024-03-20 09:00] LABS: INR 2.8 (0.9-1.1); Prothrombin Time 28.1 Seconds (9.0-12.0)
[2024-03-20] MEDS: COLCHICINE 0.6 MG TAB PO SCH (09:20)
--- NOTE | 2024-03-20 09:33 | Discharge Summary ---
Discharge Summary Date of Service March 20, 2024 Principal Dx & Hospital Course #1 = Principal Diagnosis (1) Chest wall discomfort: (2) History of aortic valve replacement: (3) Gout flare: (4) Dog bite: (5) Complex laceration of right ear: Notes For Next Care Provider Medication Changes From Visit Patient will be started on a course of prednisone 40 mg daily for 5 days followed by starting him on allopurinol 300 mg daily. Admission HPI Per Admitting Provider This is a 54yo M with a PMH of aortic valve replacement on 02/08 at [facility] (mechanical valve, on coumadin), gout, COPD, CAROLE and other medical problems listed below who presents with chest wall pain. Patient was observed overnight, he had no troponin rise, EKG was otherwise unremarkable, he was seen and examined this morning. It seems that most of his problems are scattered all over his body mainly over the knees and ankles. His uric acid was found to be e levated, he does seem to have a polyarticular acute gouty flare. Patient will be treated with prednisone 40 mg daily for 5 days followed by starting him on allopurinol 300 mg daily. He is on anticoagulation, I am aware that his INR is at 3.1 today. In regard to his right ear dog bite, he was seen by ENT and recommendations were given. 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 Will discharge him home as he feels more comfortable. Discharge Exam VITALS: Reviewed. WEIGHT/BMI reviewed. GEN: Healthy appearing, well-developed, NAD. NECK: Supple, with no masses. CV: no m/r/g. LUNGS: CTAB, no w/r/c. ABD: Soft, NT/ND, NBS, no masses or organomegaly. Updated Medication List Medication Instructions Recorded Confirmed Type trazodone 100 mg tablet 100 mg PO HS 08/15/20 03/19/24 History amoxicillin 875 mg-potassium 1 tab PO BID #14 tabs 03/17/24 03/19/24 Rx clavulanate 125 mg tablet albuterol sulfate 90 mcg/actuation 2 puff inhalation Q6H PRN Wheezing 03/19/24 03/19/24 History aerosol inhaler aspirin 81 mg chewable tablet 81 mg PO DAILY 03/19/24 03/19/24 History atorvastatin 20 mg tablet 20 mg PO DAILY 03/19/24 03/19/24 History fluticasone 250 mcg-salmeterol 50 1 inh inhalation BID 03/19/24 03/19/24 History mcg/dose blistr powdr for inhalation warfarin 2 mg tablet 2 mg PO DAILY 03/19/24 03/19/24 History allopurinol 100 mg tablet 300 mg (3 x 100 mg) PO DAILY 30 03/20/24 Rx days #90 tabs prednisone 20 mg tablet 40 mg (2 x 20 mg) PO DAILY 5 days 03/20/24 Rx #10 tabs Hospital Stay Data Consultations 03/19/24 14:24 ED Decision to Admit Stat 03/19/24 16:05 Consult Cardiology Routine 03/20/24 07:00 Consult Oromaxillofacial Surgery Routine Pending Results Patient Have Any Pending Studies at Discharge: No Discharge Instructions Given to Patient (Per Discharging Provider) No further recommendation Total Time Total Time Spent Total Time Spent (In Minutes): More than 35 minutes
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
[2024-03-20 11:02] LABS: Estimated Average Glucose 108 mg/dl; Hemoglobin A1C 5.4 % (4.5-5.6)
[2024-03-20 11:45] VITALS: BP 138/65; PULSE 74; TEMP 98.4; O2SAT 96
--- NOTE | 2024-03-20 21:27 | Oral/Maxillofacial Consult ---
Date of Consultation March 20, 2024 History of Present Illness Reason for Consultation: follow up s/p ear laceration-dog bite repaired Fri in ER (am) Attending Physician: Jus Smith MD History of Present Illness Post OP note for facial lacerations at 3 days admitted to hospital for weakness s/p dog bite injury s/p Aortic Value replacement . The repaired ear laceration looks great. The tissue is soft looks great with still some swelling. The wound edges are very flat without hypertrophy. No bleeding. anatomy looks good Cartilage is covered and sutures in place. Over all the result is excellent and the patient is very please. I reviewed home care, cleaning and use of OTC antibiotic ointment. Shaheed will see me for follow up care on Mar 30 at 4 pm He is OK for Discharge from OMS standpoint. Allergies Allergy/AdvReac Type Severity Reaction Status Date / Time bee venom protein (honey bee) Allergy Severe SHORTNESS Verified 08/15/20 22:17 OF BREATH, SWELLING Home Medications Medication Instructions Recorded Confirmed Type trazodone 100 mg tablet 100 mg PO HS 08/15/20 03/19/24 History amoxicillin 875 mg-potassium 1 tab PO BID #14 tabs 03/17/24 03/19/24 Rx clavulanate 125 mg tablet albuterol sulfate 90 mcg/actuation 2 puff inhalation Q6H PRN Wheezing 03/19/24 03/19/24 History aerosol inhaler aspirin 81 mg chewable tablet 81 mg PO DAILY 03/19/24 03/19/24 History atorvastatin 20 mg tablet 20 mg PO DAILY 03/19/24 03/19/24 History fluticasone 250 mcg-salmeterol 50 1 inh inhalation BID 03/19/24 03/19/24 History mcg/dose blistr powdr for inhalation warfarin 2 mg tablet 2 mg PO DAILY 03/19/24 03/19/24 History allopurinol 100 mg tablet 300 mg (3 x 100 mg) PO DAILY 30 03/20/24 Rx days #90 tabs prednisone 20 mg tablet 40 mg (2 x 20 mg) PO DAILY 5 days 03/20/24 Rx #10 tabs Patient History Medical History Leaky heart valve Surgical History No pertinent past surgical history Family History Other Cancer Stroke Social History Smoking Status: Former smoker Tobacco Type: Cigarettes Second Hand Exposure: No; Do You Dip or Chew Tobacco: No; Hx Alcohol Use: Yes (history, stopped 12-09-23) Alcohol type: other Hx Substance Use: Yes Last Used Substance: Unknown Preferred Language: Arabic Communication Ability: Effective Manufacturing Engineering Technologist Required: No Beliefs That Will Affect Care: None Current Living Situation: Significant Other Current Living Situation Comment: Lives with . Feels Safe at Home: Yes Assistive Devices: None Results & Data Vital Signs (Past 12 Hours) Vital Signs Temp Pulse Resp BP Pulse Ox O2 Del Method O2 Flow Rate 03/20/24 13:09 36.9 C 74 20 138/65 96 03/20/24 11:00 36.9 C 74 20 138/65 96 Nasal Cannula 2 PG Care Time/CCT Total # of Minutes Spent Total Time Spent with Patient: Total time spent is greater than 50% in coordination of care (as documented) at patient's floor/unit and/or counseling patient: Coding Level of Care Code 42178 IN/OBS CONSULT LVL 2,35M
--- NOTE | 2024-03-21 05:50 | Electrocardiogram Report ---
Test Reason : Blood Pressure : */* mmHG Vent. Rate : 86 BPM Atrial Rate : 86 BPM P-R Int : 150 ms QRS Dur : 84 ms QT Int : 362 ms P-R-T Axes : 62 69 119 degrees QTcB Int : 433 ms Normal sinus rhythm Possible Anterior infarct , age undetermined Nonspecific T wave abnormality Abnormal ECG When compared with ECG of 19-Mar-2024 11:51, Premature ventricular complexes are no longer Present Confirmed by Ty Payton ([id number]) on 03/21/2024 5:49:37 AM Referred By: REFERRED SELF Confirmed By: Ty Payton
== END 2024-03-20 18:48 | disposition home or self-care (01) | DRG 313 ==
LOC: ED 11:40 → 2S 14:26 → SUATTDRO 14:26 → 2S 15:49